=== PATIENT | female | born 1995 | race Caucasian/White ===

== ENCOUNTER 2023-03-19 14:14 | Emergency (ER) | payer OTHER, SELFPAY ==
--- NOTE | ~2023-03-19 | XR_ITS ---
EXAMINATION: XR abdomen/kub 1V DATE: 03/19/2023 15:10 INDICATION: Abdominal pain. Flank pain. TECHNIQUE: A supine view of the abdomen on 2 radiographs was obtained. COMPARISON: None. FINDINGS: There are no dilated loops of bowel. There is a moderate volume of stool in the colon. No v isible urolithiasis. IMPRESSION: 1. Normal bowel gas pattern. Reviewed, dictated and finalized at location E. CAR FOREMAN
[2023-03-19 14:37] VITALS: BP 140/95; PULSE 77; RESP 18; TEMP 37.1; O2SAT 100
--- NOTE | 2023-03-19 14:37 | ED.FEMALEGU ---
HPI - Female Genitourinary General Chief complaint: Urogenital-Female Stated complaint: abdominal pain,lower back pain Time Seen by Provider: 03/19/23 14:46 Source: patient and RN notes reviewed Mode of arrival: ambulatory Limitations: no limitations History of Present Illness HPI Narrative: 28-year-old female presents concern for 2 day history of right lower abdominal pain, right low back pain, suprapubic pressure, nausea. She reports history of ovarian cysts, however the pain is slightly different and more severe this time. She reports her last menstrual period ended about a week ago. She denies concern for . She reports her last bowel movement was yesterday. MD elicited complaint: flank pain Related Data Home Medications Medication Instructions Recorded Confirmed norethindrone 1 mg-ethinyl tablet 03/19/23 estradiol 20 mcg (24)-iron 75 mg (4) tablet (Aurovela 24 Fe) Allergies Allergy/AdvReac Type Severity Reaction Status Date / Time No Known Allergies Allergy Verified 03/19/23 14:40 Review of Systems Review of Systems: CONSTITUTIONAL: Denies malaise or fever. Reports chills, sweats CARDIOVASCULAR: Denies chest pain, palpitations, or edema. RESPIRATORY: Denies cough or dyspnea. GASTROINTESTINAL: Reports right lower abdominal pain. Denies nausea, vomiting, diarrhea GENITOURINARY: Denies dysuria, frequency, urgency. Reports suprapubic pressure. Repo denies rts flank pain or hematuria. SKIN: Denies rash or itching. MUSCULOSKELETAL: Reports right low back pain All systems reviewed & are unremarkable except as noted in HPI and below PMFSH Comments At time of signature, agree with nursing past medical, surgical, social and family history. There is no relevant family history pertinent to the presenting complaint Exam Narrative: GENERAL: Well-appearing, well-nourished, and in no acute distress. HEAD: Normocephalic. EYES: PERRLA, conjunctivae clear. NECK: Supple. No lymphadenopathy CHEST: Clear to auscultation. No respiratory distress. HEART: Regular rate and rhythm. ABDOMEN: Soft, nontender upon palpation, nondistended, normal active bowel sounds, no palpable or pulsatile masses, no guarding. No CVA tenderness SKIN: Warm, dry, no rash. NEURO: Alert and oriented x3. PSYCH: Normal mood and affect Course Course Emergency Course: Patient is aware of, understands and agrees to be transferred to the emergency room.. Patient agrees to proceed directly to the emergency department. Portions of this record may have been created with voice recognition software Level of Care: Express Care Visit Vital Signs Vital signs: Reviewed. Transfer Transfered to: [place] Transportation: Other (Private vehicle) Transfer rationale: Abdominal pain and flank pain Accepting physician: Jp MDM - Female Genitourinary MDM Narrative Medical decision making narrative: Exam findings and UA show no acute concerns or changes; patient is non-toxic appearing and is in no distress. Differential Diagnosis Differential diagnosis: Likely urinary tract infection, cystitis and other (Nephrolithiasis, ovarian cyst, other abdominal pathology) Imaging Data My impression: Images reviewed, interpreted by radiologist, agree, see report. Radiologist's impression: Images reviewed, interpreted by radiologist, agree, see report. Critical Care Time Critical Care Time Critical Care Time: No Discharge Plan Discharge Clinical Impression: Abdominal pain Patient Disposition: Acute Care Hospital Condition: Stable Additional Instructions: Your blood pressure was elevated above 120/80 today at [facility]. This puts you above the threshold for follow up. Please schedule a follow up visit with your personal physician as soon as possible, for further evaluation and treatment. Even blood pressure exceeding 120/80 may indicate pre-hypertension. Prescriptions: No Action Aurovela 24 Fe 1 mg-20 mcg
[2023-03-19 14:40] VITALS: BP 140/95; PULSE 77; RESP 18; TEMP 37.1; O2SAT 100
== END 2023-03-19 15:28 | disposition short-term general hospital (02) ==
PROVIDERS: Emergency Provider Nurse Practitioner; PCP Nurse Practitioner Family
DX: R10.30 Lower abdominal pain, unspecified (principal)
CPT/HCPCS: 74018; 81003; 99213; G0463

== ENCOUNTER 2023-03-19 16:14 | Emergency (ER) | payer OTHER, SELFPAY ==
[2023-03-19] VITALS (10 sets, daily range): BP systolic 109–171; BP diastolic 69–104; PULSE 64–86; RESP 12–18; TEMP 36.4–37; O2SAT 97–100
--- NOTE | ~2023-03-19 | CT_ITS ---
EXAMINATION: CT abdomen pelvis w con DATE: 03/19/2023 20:23 INDICATION: Right lower quadrant abdominal pain. TECHNIQUE: Computed tomography (CT) of the abdomen and pelvis was performed with 100 mL Omnipaque 350 intravenous contrast. Automated exposure control and iterative reconstruction technique were employe d. The dose-length product was 1125.09 mGy-cm. COMPARISON: Pelvis ultrasound 03/19/2023 FINDINGS: The visualized portions of the lung bases demonstrate mild atelectasis. No pleural effusion . The heart size is normal. No pericardial effusion. The liver, gallbladder, spleen, pancreas, adrena l glands, and kidneys are normal. There are no dilated loops of bowel. The appendix is normal. There are no pathologically enlarged lymph nodes. There is no free intraperitoneal fluid. There is mild tho racic spondylosis. IMPRESSION: 1. No etiology for the patient's symptoms. Reviewed, dictated and finalized at location E. ITY CONTROL DIRECTOR
--- NOTE | ~2023-03-19 | US_ITS ---
EXAMINATION: US pelvic complete w TV DATE: 03/19/2023 20:21 INDICATION: Right lower quadrant abdominal pain. TECHNIQUE: Multiple transabdominal and transvaginal sonographic images of the pelvis were obtained. COMPARISON: CT abdomen and pelvis 03/19/23 FINDINGS: TRANSABDOMINAL ULTRASOUND: The uterus measures 5.9 x 3.2 x 4.0 cm. There is no free fluid in the pelvis. TRANSVAGINAL ULTRASOUND: The endometrial complex measures 2 mm in thickness. The right ovary measures 2.6 x 1.7 x 2.7 cm. Ther e is normal vascular flow in the right ovary. The left ovary is not visualized, but is normal by CT. IMPRESSION: 1. Normal pelvis. Reviewed, dictated and finalized at location E. ER BLOCK CUTTER IMPRESSION: 1. Normal pelvis.
--- NOTE | 2023-03-19 19:40 | ED.GENADULT ---
HPI - General Adult General Chief complaint: Abdominal Pain Stated complaint: Abdominal pain Time Seen by Provider: 03/19/23 19:16 Source: patient Mode of arrival: ambulatory Limitations: no limitations History of Present Illness HPI narrative: This is a 28-year-old female who presents to the ED with chief complaint of right-sided abdominal pelvic pain x3 days. Reports initially it was very constant but has been more intermittent today. She was seen in urgent care referred her to the ED today. Reports that her normal menstrual period ended last Friday. Denies vaginal discharge or concern for STD. Denies fevers, chills or urinary problems. Denies problems with bowel movements. Related Data Home Medications Medication Instructions Recorded Confirmed norethindrone 1 mg-ethinyl tablet 03/19/23 estradiol 20 mcg (24)-iron 75 mg () tablet (Aurovela ) Allergies Allergy/AdvReac Type Severity Reaction Status Date / Time Sulfa (Sulfonamide Allergy Unknown Verified 03/19/23 21:23 Antibiotics) codeine AdvReac Unknown Verified 03/19/23 21:23 leflunomide [From Arava] AdvReac Unknown Verified 03/19/23 21:23 methotrexate AdvReac Unknown Verified 03/19/23 21:23 Review of Systems Review of Systems: All systems as dictated in HPI Exam Narrative: GENERAL: Well-appearing, well-nourished, and in no acute distress. HEAD: Normocephalic, atraumatic. EYES: PERRLA and EOMI. ENT: Nares clear, no rhinorrhea or epistaxis. Mucous membranes moist. Oropharynx without tonsillar hypertrophy exudate or other lesions. NECK: Supple. No adenopathy or masses. CHEST: No respiratory distress. Clear to auscultation. No wheezes rales or rhonchi HEART: Regular rate and rhythm. No murmur heard. Normal peripheral pulses. ABDOMEN: Mild tenderness in the right lower quadrant. Soft, otherwise nontender, nondistended, normal active bowel sounds. Negative flank tenderness bilaterally. MSK: Normal range of motion. No edema. SKIN: Warm, dry, no rash. NEURO: Alert and oriented x3. No focal deficits. PSYCH: Normal mood and affect. Course Vital Signs Vital signs: Vital Signs Temperature 97.6 F 03/19/23 16:17 Pulse Rate 82 03/19/23 16:17 Respiratory Rate 16 03/19/23 16:17 Blood Pressure 132/104 H 03/19/23 16:17 Pulse Oximetry 100 03/19/23 16:17 Oxygen Delivery Room Air 03/19/23 16:17 Temperature 98.6 F 03/19/23 19:03 Pulse Rate 64 03/19/23 21:51 Respiratory Rate 15 03/19/23 21:51 Blood Pressure 124/85 03/19/23 21:51 Pulse Oximetry 100 03/19/23 21:51 Oxygen Delivery Room Air 03/19/23 16:17 Medical Decision Making MDM Narrative Medical decision making narrative: This is a 28-year-old female who presents to the ED with chief complaint of right lower quadrant abdominal pain beginning 2 days ago. Vitals are normal. Afebrile. Exam shows focal tenderness to the right lower quadrant. Lab work shows a normal CBC. CMP largely unremarkable, however creatinine is unexpectedly little elevated at 1.50. Urinalysis shows 2+ protein and 2+ blood. No evidence of UTI. CT abdomen pelvis with IV contrast shows no etiology for patient's symptoms. Ultrasound pelvic shows a normal pelvis. Overall patient clinically improved greatly 0 only did not require any pain medication for intervention. Pt will be discharged in stable condition. Return precautions given and supportive measures discussed. Pt is understanding and agreeable with plan for discharge and follow-up with PCP. Vital Signs Vital Signs: Vital Signs Temperature 97.6 F 03/19/23 16:17 Pulse Rate 82 03/19/23 16:17 Respiratory Rate 16 03/19/23 16:17 Blood Pressure 132/104 H 03/19/23 16:17 Pulse Oximetry 100 03/19/23 16:17 Oxygen Delivery Room Air 03/19/23 16:17 Temperature 98.6 F 03/19/23 19:03 Pulse Rate 64 03/19/23 21:51 Respiratory Rate 15 03/19/23 21:51 Blood Pressure 124/85 03/19/23 21:
[2023-03-19 19:41] LABS: Basophils Percent Auto 0.5 % (0.2-1.2); Eosinophils Absolute Auto 0.1 K/mm3 (0-0.3); Eosinophils Percent Auto 0.9 % (0-4.4); Hematocrit 40.1 % (37.0-47.0); Hemoglobin 12.8 g/dL (12.0-15.0); Immature Granulocyte Absolute 0.07 K/mm3 (0.00-0.031); Immature Granulocyte Percent A 0.8 % (0-0.5); Lymphocytes Absolute Auto 1.67 K/mm3 (0.9-3.2); Lymphocytes Percent Auto 19.8 % (18.3-44.2); Mean Corpuscular HGB Conc 31.9 g/dl (32-36); Mean Corpuscular Hemoglobin 27.4 pg (26-34); Mean Corpuscular Volume 85.7 fl (80-100); Mean Platelet Volume 9.6 fl (7.4-10.4); Monocytes Absolute Auto 0.5 K/mm3 (0.1-0.6); Monocytes Percent Auto 5.9 % (2.6-8.5); Neutrophils Absolute Auto 6.1 K/mm3 (1.3-6.7); Neutrophils Percent Auto 72.1 % (45.5-73.1); Platelet Count Result 290 k/mm3 (150-375); Red Blood Count 4.68 M/mm3 (4.2-5.4); Red Cell Distribution Width 12.9 % (11.5-14.5); White Blood Count 8.4 K/mm3 (4.5-10.0)
[2023-03-19 19:52] LABS: Alanine Aminotransferase 38 U/L (6-35); Albumin Level 4.1 g/dL (3.5-5.1); Alkaline Phosphatase 107 U/L (38-126); Anion Gap 7 mmol/L (8-16); Aspartate Amino Transferase 38 U/L (14-36); Bilirubin,Total 0.8 mg/dL (0.2-1.3); Blood Urea Nitrogen 17 mg/dL (7-17); Carbon Dioxide 28 mmol/L (22-30); Chloride 103 mmol/L (98-107); Estimated Glomerular Filt Rate 42; Glucose 95 mg/dL (65-110); Lipase 32 U/L (23-300); Sodium 138 mmol/L (137-145)
[2023-03-19] MEDS: ONDANSETRON INJ 4 MG/2 ML VIAL IV PUSH (20:25)
[2023-03-19 20:57] LABS: Appearance Urine Clear (Clear); Bacteria Urine None Seen /hpf; Bilirubin Urine Negative (Negative); Blood Urine 2+ (Negative); Color Urine Yellow (Yellow); Glucose Urine UA Negative (Negative); Ketones Urine Negative (Negative); Leukocyte Esterase Ur Negative LEU/UL (Negative); Need Manual Microscopic Reviewed; Nitrate Urine Negative (Negative); Protein Urine 2+ mg/dL (Negative); RBC Urine 0-2 /hpf (0-2); Specific Grav Ur 1.022 (1.001-1.035); Squamous Epithelial Cell Urine Occasional /hpf (Few); Urobilinogen Urine 0.2 mg/dL (<2.0); WBC Urine 0-5 /hpf; pH Urine 5.5 (5.0-9.0)
[2023-03-19 20:58] LABS: Add Urine Microscopic? YES
== END 2023-03-19 21:52 | disposition home or self-care (01) ==
PROVIDERS: Emergency Provider Physician Assistant; PCP Nurse Practitioner Family
DX: R10.9 Unspecified abdominal pain (principal)
CPT/HCPCS: 36415; 74018; 74177; 76830; 76856; 80053; 81001; 81003; 83690; 85025; 96374; 99284; J2405; Q9967

== ENCOUNTER 2024-02-26 08:00 | Emergency (ER) | payer OTHER, SELFPAY ==
--- NOTE | 2024-02-26 08:10 | ED.URI ---
HPI - URI/Sore Throat General Chief Complaint: Upper Respiratory Infection Stated Complaint: cough Time Seen by Provider: 02/26/24 08:10 Source: patient, RN notes reviewed and old records reviewed Mode of arrival: ambulatory Limitations: no limitations History of Present Illness HPI Narrative: Patient presents with complaints of 4 days of cough and sore throat. She denies any fevers, chills, sweats. She reports sore throat is constant but is aggravated by coughing. She denies any postnasal drainage. She reports that she has had occasional wheezing, no shortness of breath. She has been taking Sudafed for her symptoms with minimal relief, last dose last night Related Data Home Medications ?Medication ?Instructions ?Recorded ?Confirmed ?Last Taken ?Type norethindrone 1 mg-ethinyl tablet 03/19/23 Unknown History estradiol 20 mcg (24)-iron 75 mg (4) tablet (Aurovela 24 Fe) Allergies Allergy/AdvReac Type Severity Reaction Status Date / Time No Known Allergies Allergy Verified 02/26/24 08:15 Review of Systems Review of Systems: All systems reviewed & are unremarkable except as noted in HPI and below Constitutional: Constitutional: Reports no additional constitutional complaints ENT: Reports system reviewed and no additional complaints, except as documented, Reports sore throat and Denies throat swelling Cardiovascular: Cardiovascular: Reports no additional cardiovascular complaints Respiratory: Respiratory: Reports no additional respiratory complaints, Reports cough and Reports wheezing Gastrointestinal: Gastrointestinal: Reports no additional gastrointestinal complaints PMFSH Comments At the time of my signature, I reviewed and agree with the nursing past medical, surgical, social, and family history. There is no relevant family history pertinent to the patient complaint. Exam Const: General: cooperative, no acute distress, alert and awake Orientation/consciousness: oriented to person, oriented to place and oriented to time HENMT: Head: normal to inspection Throat: abnormal tonsil bilateral hypertrophy 1+ and posterior oropharynx abnormal erythema Resp: Effort & Inspection: normal respiratory effort and able to speak in complete sentences Auscultation: clear to auscultation bilaterally, no crackles, no rales, no rhonchi and no wheezes Cardio: Palpation: normal PMI Rate: regular rate Rhythm: regular rhythm Heart sounds: S1 normal heart sound present and S2 normal heart sound present Neuro: General: oriented to person, oriented to place and oriented to time Cranial nerves: Yes CN's II-XII intact bilaterally Psych: Appearance: grossly normal Thought process: Normal thought process present Insight: Good insight present (Psych) Judgement: Good judgement present (Psych) Course Course Level of Care: Express Care Visit Vital Signs Vital signs: Reviewed MDM - URI/Sore Throat MDM Narrative Medical decision making narrative: negative strep, culture pending. Cough symptoms likely viral in origin. No wheezing or coughing noted on exam. Treat symptomatically with Tessalon Perles. Work note provided. Discharge instructions reviewed with patient, as well as provided in writing per nursing staff. The instructions also include specific and strict return/GO TO THE ER as well as f/u information. All questions have been answered, and the patient deny any further questions with discharge and discharge plan. Some parts of this dictation were generated by voice recognition software and may contain typographical and/or grammatical inaccuracies. Differential Diagnosis Differential diagnosis: Likely upper respiratory infection, viral infection, influenza and pharyngitis Medical Records Attestation: I reviewed the patient's medical records. Lab Data Attestation: I reviewed the patient's lab results. Discharge Plan Discharge Clinical Impression: Upper respiratory infection Qualifiers: URI type: unspecified viral URI Qualified Code(s): J06.9 - Acute upper respiratory infection, unspecified Patient Disposition: Home, Self-Care Condition: Stable Instructions: Antibiotic Form, Cold Symptoms (ED) Additional Instructions: Take medications as prescribed. Tylenol and/or ibuprofen for fever or discomfort. Follow with primary care provider. Emergency department for new or worse symptoms Patient Language: Persian Prescriptions: New benzonatate 200 mg capsule 200 mg PO TID PRN (Reason: cough) Qty: 30 0RF No Action Aurovela 24 Fe 1 mg-20 mcg (24)/75 mg (4) tablet Follow-up/Referrals: PHYSICIAN,CABLE STRETCHER AND TESTER [Primary Care Provider] - Stand Alone Forms: Work/School Release IP Time of Disposition: 08:26
[2024-02-26 08:11] VITALS: BP 122/85; PULSE 85; RESP 16; TEMP 35.8; O2SAT 100
[2024-02-26 08:30] LABS: EDSTREPNEGPOS1 Negative (Negative)
--- OUTSIDE RECORDS SUMMARY | 2024-03-04 06:25 | XMS_ITS | Encounter Summary ---
Author Organization [facility] Address [address] [place] [address] Care Team Providers Care Building Supervisor Name Role Phone Angie Melchor Primary Care Provider [phone] Reason for Visit * Reason Onset Date Comments MEDICATION REFILL 03/03/2023 Encounter Details Date Type Department Care Team (Late st Contact Info) Description 03/03/2023 Refill [facility] - RECYCLING COLLECTIONS DRIVER [address] [place] [address] Vani Blandon APRN-CNP [address] [place] [address] MEDICATION REFILL Social History Tobacco Use Types Packs/Day Years Used Date Smoking Tobacco: Never Smokeless Tobacco: Never Alcohol Use Standard Drinks/Week Comments Yes 0 (1 standard drink = 0.6 oz pur e alcohol) socially Sex and Gender Information Value Date Recorded Sex Assigned at Not on file Gender Identity Not on file Sexual Orientation Not on file documented as of this encounter Miscellaneous Notes * Telephone Encounter - Ginny Marcelo RN - 03/03/2023 12:45 PM MANAGER SOCIAL MEDIA OCP Refill request denied because Refills available at the pharmacy GER SOCIAL MEDIA documented in this encounter Plan of Treatment Not on file documented as of this encounter Visit Diagnoses Diagnosis Menorrhagia with regular cycle Excessive or frequent menstruation documented in this encounter Care Teams Building Supervisor Relationship Specialty Start Date End Date Angie Melchor APRN-JULISA [address] [place] [address] PCP - General Nurse Practitioner 07/04/22 documented as of this encounter
--- OUTSIDE RECORDS SUMMARY | 2024-03-04 06:25 | XMS_ITS | Encounter Summary ---
Author Organization [facility] Address [address] [place] [address] Care Team Providers Care Iron Bender Name Role Phone Angie Melchor Primary Care Provider [phone] Reason for Visit * Reason Comments Follow-up Patient wants to get back on control Encounter Details Date Type Department Care Team (Late st Contact Info) Description 07/23/2023 9:50 AM CDT Office Visit [facility] - SUPERVISOR ORNAMENTAL IRONWORKING [address] [place] [address] Vani Blandon APRN-CNP [address] [place] [address] Encounter for other contraceptive management (Primary Dx) Social History Tobacco Use Types Packs/Day Years Used Date Smoking Tobacco: Never Smokeless Tobacco: Never Alcohol Use Standard Drinks/Week Comments Yes 0 (1 standard drink = 0.6 oz pur e alcohol) socially PHQ-2 Answer Date Recorded Patient Health Questionnaire-2 Score 0 07/22/2023 Sex and Gender Information Value Date Recorded Sex Assigned at Not on file Gender Identity Not on file Sexual Orientation Not on file documented as of this encounter Last Filed Vital Signs Vital Sign Reading Time Taken Comments Blood Pressure 112/82 07/23/2023 9:51 AM CDT Pulse - - Temperature - - Respiratory Rate - - Oxygen Saturation - - Inhaled Oxygen Concentration - - Weight 104.6 kg (230 lb 9.6 oz) 07/23/2023 9:51 AM CDT Height 172.7 cm (5' 8 ) 07/23/2023 9:51 AM CDT Body Mass Index 35.06 07/23/2023 9:51 AM CDT documented in this encounter Progress Notes * Vani Blandon, PARAG-DEER FARMER - 07/23/2023 10:13 AM CDT Subjective: Aishwarya Alicea is a 28 year old female who presents contraception counseling. The patient has no complaints today. Pt stopped the pill in 04-19 due to BTB. Had bleeding in middle of pack. Pt had unprotected intercourse on 07-11-23 and took Plan B and had UPSI on 07-21-23 and has not taken Plan B yet. Advised to take again. Quant HCG today and to start new pill on Friday. Reminder to take pilldaily at the same time everyday. No plans for now. Pt to RTC in 3-4 months for annual exam and pap. No past medical history on file. Family History Problem Relation Name Age of Onset None Known Mother None Known Father Current Outpatient Medications Medication Sig Dispense Refill fluconazole (Diflucan) 150 MG tablet Take 1 (one) tablet by mouth as directed And can repeat in 1 week with 1 tab po for itch if needed 2 tablet 0 norethindone-ethinyl estradiol-FE (Loestrin 24 Fe) 1-20 MG-MCG(24) tablet Take 1 (one) tablet by mouth once daily 84 tablet 3 No current facility-administered medications for this visit. No Known Allergies Social History Socioeconomic History Marital status: Single Spouse name: Not on file Number of children: Not on file Years of education: Not on file Highest education level: Not on file Occupational History Not on file Tobacco Use Smoking status: Never Smokeless tobacco: Never Vaping Use Vaping Use: Some days Substance and Sexual Activity Alcohol use: Yes Comment: socially Drug use: Never Sexual activity: Yes Partners: Male Other Topics Concern Not on file Social History Narrative Not on file Social Determinants of Health Financial Resource Strain: Not on file Food Insecurity: Not on file Transportation Needs: Not on file Stress: Not on file Housing Stability: Not on file Review of Systems No other concerns Objective: BP 112/82 Ht 1.727 m (5' 8 ) Wt 104.6 kg (230 lb 9.6 oz) Assessment: 28 year old year old, starting OCP (estrogen/progesterone), new pill Plan: Diagnosis explained in detail, including differential. documented in this encounter Plan of Treatment Not on file documented as of this encounter Procedures Procedure Name Priority Date/Time Associated Diagnosis Comments HCG BETA BLOOD QUANTITATIVE LEWIS 07/23/2023 Encounter for other contraceptive management documented in this encounter Results * HCG BETA BLOOD QUANTITATIVE (07/23/2023) HCG Quant <5 mIU/mL QUEST Comment: Reference Range Non or premenopausal ?<5 Postmenopausal ? <10 Values from different assay methods may vary. The use of this assay to monitor or to diagnose patients with cancer or any condition unrelated to has not been cleared or approved by the FDA or the market analysis director of the assay. REPORT COMMENT: FASTING:NO Test Performed at: [facility] [address] ??[id number] KALYAN GOMEZ MD Blood BLOOD SPECIMEN / Unknown 07/23/2023 07/23/2023 10:25 AM CDT [facility] - CHEMISTRY OR DERABLES Performing Organization Address City/State/[facility] Co de Phone Number [facility] [address] [place] [address] documented in this encounter Visit Diagnoses Diagnosis Encounter for other contraceptive management- Primary documented in this encounter Care Teams Iron Bender Relationship Specialty Start Date End Date Angie Melchor APRN-CNP [address] [place] [address] PCP - General Nurse Practitioner 07/04/22 documented as of this encounter
--- OUTSIDE RECORDS SUMMARY | 2024-03-04 06:25 | XMS_ITS | Encounter Summary ---
Author Organization [facility] Address [address] [place] [address] Care Team Providers Care Boat Dock Operator Name Role Phone Angie Melchor Primary Care Provider [phone] Reason for Visit * Reason Onset Date Comments Med Question 12/19/2022 Encounter Details Date Type Department Care Team (Late st Contact Info) Description 12/19/2022 Telephone [facility] - PHOTO CHECKER [address] [facility] [place] [address] Vani Blandon APRN-CNP [address] [facility] [address] [place] [address] Med Question Social History Tobacco Use Types Packs/Day Years [...] Telephone Encounter - Ginny Marcelo RN - 12/19/2022 12:32 PM CDT RN called patient. Transferred prescription [facility]ills [facility]. * Telephone Encounter - Carolina Phelan - 12/19/2022 12:27 PM CDT Pt is wanting to speak with a nurse about having her prescription set [facility] with [facility]. documented in this encounter Plan of Treatment Not on file documented as of this encounter Visit Diagnoses Diagnosis Menorrhagia with regular cycle Excessive or frequent menstruation documented in this encounter Care Teams Boat Dock Operator Relationship Specialty Start Date End Date Angie Melchor APRN-JULISA [address] [place] [address] PCP - General Nurse Practitioner 07/04/22 documented as of this encounter
--- OUTSIDE RECORDS SUMMARY | 2024-03-04 06:25 | XMS_ITS | Encounter Summary ---
Author Organization [facility] Address [address] [facility] [facility] [place] [address] Care Team Providers Care Paid Search Specialist Name Role Phone Angie Melchor Primary Care Provider [phone] [phone] Reason for Visit * Reason Comments Refill Request Encounter Details Date Type Department Care Team (Late st Contact Info) Description 12/22/2023 Refill [facility] - PATTERNMAKER PLASTER [address] [facility] [address] [place] [address] Vani Blandon APRN-CNP [address] [place] [address] Refill Request Social History Tobacco Use Types Packs/Day Years [...] encounter Miscellaneous Notes * Telephone Encounter - Latasha Ordonez RN - 12/23/2023 12:04 PM CDT DELICIA 07/23/2023, given OCP #84 + 1 RF. RTO 3 to 4 months for WWE. No pending appointment and will refuse OCP today. documented in this encounter Plan of Treatment Not on file documented as of this encounter Visit Diagnoses Not on filedocumented in this encounter Care Teams Paid Search Specialist Relationship Specialty Start Date End Date Angie Melchor APRN-ACCOUNT EXECUTIVE SALES REPRESENTATIVE [address] [place] [address] PCP - General Nurse Practitioner 07/04/22 documented as of this encounter
--- OUTSIDE RECORDS SUMMARY | 2024-03-04 06:25 | XMS_ITS | Encounter Summary ---
Author Organization [facility] Address [address] [facility] [place] [address] Care Team Providers Care Facing End Trimmer Name Role Phone Angie Melchor Primary Care Provider +1 [phone] Encounter Details Date Type Department Care Team (Late st Contact Info) Description 09/18/2022 Orders Only [facility] - PROJECT MANAGER [address] [place] [address] Vani Blandon APRN-CNP [address] [place] [address] Candidiasis Social History Tobacco Use Types Packs/Day Years Used Date Smoking Tobacco: Never Smokeless Tobacco: Never Alcohol Use Standard Drinks/Week Comments Yes 0 (1 standard drink = 0.6 oz pur e alcohol) socially Sex and Gender Information Value Date Recorded Sex Assigned at Not on file Gender Identity Not on file Sexual Orientation Not on file documented as of this encounter Plan of Treatment Not on file documented as of this encounter Visit Diagnoses Diagnosis Candidiasis- Primary documented in this encounter Care Teams Facing End Trimmer Relationship Specialty Start Date End Date Angie Melchor APRN-CNP [address] [place] [address] PCP - General Nurse Practitioner 07/04/22 documented as of this encounter
--- OUTSIDE RECORDS SUMMARY | 2024-03-04 06:25 | XMS_ITS | Patient Health Summary ---
Author Organization [facility] Address [address] [facility] [place] [address] Care Team Providers Care Clinical Rn Liaison Name Role Phone Angie Melchor Primary Care Provider [phone] [phone] Note from [facility],non-owned Affiliates and Associated Physician Practices is amultiple site organization consisting of ambulatory clinics and hospital sitesin [place], [place], [place] and [place]. This disclosure is being madepursuant to the Care Everywhere program and may not contain all information available regarding this patient. Last updated 17.[facility] Allergies No known active allergies Medications * Be aware that medications may not be up to date on this document. Alwaysverify current medications with the patient. * fluconazole (Diflucan) 150 MG tablet(Started 09/18/2022) Take 1 (one) tablet by mouth as directed And can repeat in 1 week with 1 tab po for itch if needed * norgestim-eth estrad triphasic (Tri-Sprintec) 0.18/0.215/0.25 MG-35 MCG tablet (Started 07/23/2023) Take 1 (one) tablet by mouth once daily 1 refill by 07/22/2024 Active Problems Problem Noted Date Diagnosed Date Encounter for other contraceptive management Candidiasis 09/18/2022 Screening examination for sexually transmitted d isease 09/13/2022 Menorrhagia with regular cycle 09/13/2022 Dysmenorrhea 09/13/2022 Social History Tobacco Use Types Packs/Day Years Used Date Smoking Tobacco: Never Smokeless Tobacco: Never Tobacco Cessation:Counseling Given: No Alcohol Use Standard Drinks/Week Comments Yes 0 (1 standard drink = 0.6 oz pur e alcohol) socially PHQ-2 Answer Date Recorded Patient Health Questionnaire-2 Score 0 07/22/2023 Sex and Gender Information Value Date Recorded Sex Assigned at Not on file Gender Identity Not on file Sexual Orientation Not on file Last Filed Vital Signs Vital Sign Reading [...] Mass Index 35.06 07/23/2023 9:51 AM CDT Procedures * HCG BETA BLOOD QUANTITATIVE(Performed 07/23/2023) Performed for Encounter for other contraceptive management * SURESWAB VAGINOSIS/VAGINITIS PLUS(Performed 09/17/2022) Performed for Screening examination for sexually transmitted disease Results * HCG BETA BLOOD QUANTITATIVE (07/23/2023) Pathologist [facility] HCG Quant <5 mIU/mL [facility] Comment: Reference Range Non or premenopausal ?<5 Postmenopausal ? <10 Values from different assay methods may vary. The use of this assay to monitor or to diagnose patients with cancer or any condition unrelated to has not been cleared or approved by the FDA or the product owner of the assay. REPORT COMMENT: FASTING:NO Test Performed at: [facility] [facility] ??[id number] KALYAN GOMEZ MD Blood BLOOD SPECIMEN / Unknown 07/23/2023 07/23/2023 10:25 AM CDT Vani Blandon CORK MOLDER-EXECUTIVE [facility] - CHEMISTRY OR DERABLES [facility] [address] [place] [address] * (ABNORMAL) SURESWAB VAGINOSIS/VAGINITIS PLUS (09/17/2022 5:00 PM CDT) [facility] Bacterial Vaginosis NEGATIVE NEGATIVE [facility] Sangeetha species DETECTED(A) NOT DETECTED [facility] Sangeetha glabrata REBECCA NOT DETECTED NOT DETECTED [facility] Comment: Sangeetha species C. albicans, C. tropicalis, C. parapsilosis, and/or C. dubliniensis can be detected, but not differentiated, in the Sangeetha spp. result. Trichomonas vaginalis TMA NOT DETECTED NOT DETECTED [facility] Chlamydia trachomatis RNA NOT DETECTED NOT DETECTED [facility] GC RNA NOT DETECTED NOT DETECTED [facility] Comment: For additional information, please refer to https://education.VCV/faq/AUO842 (This link is being provided for information/ educational purposes only.) NO COLLECTION DATE RECEIVED. WE HAVE USED THE DATE THE SPECIMEN WAS RECEIVED BY THIS LABORATORY THE COLLECTION DATE. IF THIS IS INCORRECT, PLEASE CONTACT CLIENT SERVICES. PHONE NUMBER: [phone] Test Performed at: [facility] [address] [place] [address] ??[phone] KALYAN GOMEZ MD Microbiology VAGINAL SWAB / Unknown 09/17/2022 3:57 AM CDT Vani Blandon APRN-EXECUTIVE [facility] - MICROBIOLOGY ORDERABLES [facility] [address] [place] [address] Care Teams Clinical Rn Liaison Relationship Specialty Start Date End Date Angie Melchor APRN-CNP [address] [place] [address] PCP - General Nurse Practitioner 07/04/22
--- OUTSIDE RECORDS SUMMARY | 2024-03-04 06:25 | XMS_ITS | Encounter Summary ---
Author Organization [facility] Address [address] [place] [address] Care Team Providers Care Maintenance Man Name Role Phone Angie Melchor Primary Care Provider [phone] [phone] Reason for Visit * Reason Onset Date Comments Results 09/18/2022 Encounter Details Date Type Department Care Team (Late st Contact Info) Description 09/18/2022 Telephone [facility] - MANAGER OF EXHIBITIONS AND COLLECTIONS [address] [facility] [address] [place] [address] Vani Blandon APRN-CNP [address] [place] [address] Results Social History Tobacco Use Types Packs/Day Years [...] encounter Miscellaneous Notes * Telephone Encounter - Mariola Beltran RN - 09/18/2022 8:16 AM CDT RN called pt, no answer. Left VM to return call to go over results * Telephone Encounter - Mariola Beltran RN - 09/18/2022 8:13 AM CDT ----- Message from ELIN Carreon sent at 09/18/2022 8:06 AM CDT ----- Please let pt know her vaginal culture showed yeast. I will send Fluconazole for her Thanks Vani documented in this encounter Plan of Treatment Not on file documented as of this encounter Visit Diagnoses Not on filedocumented in this encounter Care Teams Maintenance Man Relationship Specialty Start Date End Date Angie Melchor APRN-CNP [address] [place] [address] PCP - General Nurse Practitioner 07/04/22 documented as of this encounter
--- OUTSIDE RECORDS SUMMARY | 2024-03-04 06:25 | XMS_ITS | Referral Summary ---
Author Organization [facility] Address [address] [facility] [place] [address] Care Team Providers Care Remote Operations Producer Name Role Phone Angie Melchor Primary Care Provider [phone] [phone] Source Comments [facility],non-owned Affiliates and Associated Physician Practices is amultiple site organization consisting of ambulatory clinics and hospital sitesin [place], [place], [place] and [place]. This disclosure is being madepursuant to the Care Everywhere program and may not contain all information available regarding this patient. Last updated 17.[facility] Encounters Date Type Department Care Team Description 12/22/2023 Refill [facility] - WINDOWS SYSTEMS ADMIN [address] [facility] [address] [place] [address] Vani Blandon APRN-CNP Refill Request from Last 3 Months Allergies No known active allergies Medications * Be aware that medications may not be up to date on this document. Alwaysverify current medications with the patient. Medication Sig Dispensed Refills Start Date End Date Status fluconazole (Diflucan) 150 MG tabletIndications:Ca ndidiasis Take 1 (one) tablet by mouth as directed And can repeat in 1 week with 1 tab po for itch if needed 2 tablet 09/18/2022 Active norgestim-eth estrad triphasic (Tri-Sprintec) 0.18/0.215/0.25 MG-35 MCG tablet Take 1 (one) tablet by mouth once daily 84 tablet 1 07/23/2023 Active Active Problems Problem Noted Date Diagnosed Date [...] Mass Index 35.06 07/23/2023 9:51 AM CDT Plan of Treatment Not on file Care Teams Remote Operations Producer Relationship Specialty Start Date End Date Angie Melchor APRN-JULISA [address] [place] [address] PCP - General Nurse Practitioner 07/04/22
--- OUTSIDE RECORDS SUMMARY | 2024-03-04 06:25 | XMS_ITS | Encounter Summary ---
Author Organization [facility] Address [address] [facility] [place] [address] Care Team Providers Care Test Automation Architect Name Role Phone Angie Melchor Primary Care Provider +1 [phone] Encounter Details Date Type Department Care Team (Latest Contact Info) Description 07/23/2023 Travel Social History Tobacco Use Types Packs/Day Years [...] on filedocumented in this encounter Care Teams Test Automation Architect Relationship Specialty Start Date End Date Angie Melchor APRN-CNP [address] [place] [address] PCP - General Nurse Practitioner 07/04/22 documented as of this encounter
--- OUTSIDE RECORDS SUMMARY | 2024-03-04 06:25 | XMS_ITS | Clinical Summary ---
Author Organization [facility] Address [address] [facility] [place] [address] Care Team Providers Care Boomboat Operator Name Role Phone Angie Melchor Primary Care Provider +1 -[phone] Source Comments [facility],non-owned Affiliates and Associated Physician Practices is amultiple site organization consisting of ambulatory clinics and hospital sitesin [place], [place], [place] and [place]. This disclosure is being madepursuant to the Care Everywhere program and may not contain all information available regarding this patient. Last updated 17.[facility] Outcome Referrals Allergies No known active allergies Medications * [...] Menorrhagia with regular cycle 09/13/2022 Dysmenorrhea 09/13/2022 Encounters Date Type Department Care Team Description 12/22/2023 Refill [facility] - TRANSCRIPTION TYPIST [address] [facility] [address] [place] [address] Vani Blandon APRN-JULISA Refill Request from Last 3 Months Family History Medical History Relation Name Comments None Known Father None Known Mother Relation Name Status Comments Father Mother Alive Social History Tobacco Use Types Packs/Day Years [...] 07/23/2023 9:51 AM CDT Plan of Treatment Health Maintenance Due Date Last Done Comments PAP SMEAR 1997 HIV SCREENING 01/22/2012 HEPATITIS C SCREENING 01/17/2015 DTAP/TDAP/TD VACCINES (1 - Tdap) 01/22/2016 HEPATITIS B VACCINE (1 of 3 - 19+ 3-dose series) 01/22/2016 COVID-19 VACCINE (3 - 2023-2 5 season) 2023 11/07/2020, 05/31/2020 INFLUENZA VACCINE (#1) 2023 2, 11/14/2020 DEPRESSION SCREENING 02/25/2024 07/23/2023 ZOSTER VACCINE (1 of 2) 2047 HIB VACCINE Aged Out No longer eligi ble based on patient's age to complete this topic HPV VACCINE Aged Out No longer eligi ble based on patient's age to complete this topic MENINGOCOCCAL VACCINE Aged Out No cyndie darren eligible based on patient's age to complete this topic PNEUMOCOCCAL VACCINE Aged Out No long er eligible based on patient's age to complete this topic Care Teams Boomboat Operator Relationship Specialty Start Date End Date Angie Melchor APRN-JULISA [address] [place] [address] PCP - General Nurse Practitioner 07/04/22
--- OUTSIDE RECORDS SUMMARY | 2024-03-04 06:26 | XMS_ITS | Encounter Summary ---
Author Organization [facility] Address [facility] [facility] [place] [address] [place] [address] Care Team Providers Care Acid Regenerator Name Role Phone Unavailable Primary Care Provider Unavailabl e Encounter Details Date Type Department Care Team (Latest Contact Info) Description 05/31/2020 Travel Social History Tobacco Use Types Packs/Day Years Used Date Smoking Tobacco: Never Assessed Comments Unknown Sex and Gender Information Value Date Recorded Sex Assigned at Not on file Legal Sex Female 7:47 PM CDT Gender Identity Not on file Sexual Orientation Not on file COVID-19 Exposure Response Date Recorded In the last month, have you been in contact with someone who was confirmed or suspected to have Coronavirus / COVID-19? No / Unsure 05/31/2020 11:32 AM CDT documented as of this encounter Plan of Treatment Not on file documented as of this encounter Visit Diagnoses Not on filedocumented in this encounter
--- OUTSIDE RECORDS SUMMARY | 2024-03-04 06:26 | XMS_ITS | Encounter Summary ---
Author Organization [facility] Address [facility] [facility] [place] [address] [place] [address] Care Team Providers Care Sas Programmer Analyst Name Role Phone Angie MelchorFANNY Primary Care Provider +1 [phone] Encounter Details Date Type Department Care Team (Latest Contact Info) Description 04/04/2022 Travel Social History Tobacco Use Types Packs/Day Years Used Date Smoking Tobacco: Never Smokeless Tobacco: Never Alcohol Use Standard Drinks/Week Comments Yes 0 (1 standard drink = 0.6 oz pur e alcohol) once weekly PHQ-2 Answer Date Recorded Patient Health Questionnaire-2 Score 1 04/02/2022 Comments No Sex and Gender Information Value Date Recorded Sex Assigned at Not on file Legal Sex Female 7:47 PM CDT Gender Identity Not on file Sexual Orientation Not on file COVID-19 Exposure Response Date Recorded In the last 10 days, have yo u been in contact with someone who was confirmed or suspected to have Coronavirus/COVID-19? No / Unsure 04/04/2022 9:08 AM INTERNATIONAL GUEST COORDINATOR documented as of this encounter Plan of Treatment Not on file documented as of this encounter Visit Diagnoses Not on filedocumented in this encounter Additional Health Concerns Assessment Noted Time PHQ-9 Depression Total Score: 7 04/02/19 23 3:46 PM INTERNATIONAL GUEST COORDINATOR documented as of this encounter Care Teams Sas Programmer Analyst Relationship Specialty Start Date End Date Angie Melchor FNP-BC [facility] [place] [address] PCP - General NURSE PRACTITIONER 03/21/22 10/25/23 documented as of this encounter
--- OUTSIDE RECORDS SUMMARY | 2024-03-04 06:26 | XMS_ITS | Encounter Summary ---
Author Organization [facility] Address [address] [place] [address]. [place] [address] [place] [address] Care Team Providers Care Customer Marketing Assistant Name Role Phone [facility] Primary Care Provider [phone]- [phone] Encounter Details Date Type Department Care Team (Late st Contact Info) Description 04/04/2022 tapviva Message Enc [facility] Family Medicine [facility] [address] [place] [phone] Angie Melchor FNP- [address] [place] [id number] Family History Social History Tobacco Use Types Packs/Day Years [...] Coronavirus/COVID-19? No / Unsure 04/04/2022 9:08 AM ENERGY CONSERVATION DIRECTOR documented as of this encounter Progress Notes * PREETHI Vee - 04/09/2022 11:51 AM CSTFrom: Aishwarya Alicea To: Angie Melchor Sent: 04/04/2022 8:03 AM ENERGY CONSERVATION DIRECTOR Subject: Family History Hi Shea! I just wanted to let you know I talked to my mom and she had endometriosis and adenomyosis and ended up having a hysterectomy and my maternal grandma had severe endometriosis and a hysterectomy. Thought that might be important as we are looking into PCOS for me. I was able to get in for the ultra sound and it is th is morning 04/04/22 at 9:15. Thank you! Aishwarya GY CONSERVATION DIRECTOR documented in this encounter Plan of Treatment Not on file documented as of this encounter Visit Diagnoses Diagnosis Hidradenitis suppurativa- Primary Hidradenitis documented in this encounter Additional Health Concerns Assessment Noted Time PHQ-9 Depression Total Score: 7 04/02/19 23 3:46 PM ENERGY CONSERVATION DIRECTOR documented as of this encounter Care Teams Customer Marketing Assistant Relationship Specialty Start Date End Date Angie Melchor FNP-BC [address] [place] [address] PCP - General NURSE PRACTITIONER 03/21/22 10/25/23 documented as of this encounter
--- OUTSIDE RECORDS SUMMARY | 2024-03-04 06:26 | XMS_ITS | Encounter Summary ---
Author Organization [facility] Address [facility] [facility] [place] [address] [place] [address] Care Team Providers Care Director Of Event Sales Name Role Phone Unavailable Primary Care Provider Unavailabl e Encounter Details Date Type Department Care Team (Late st Contact Info) Description 03/13/2022 Patient Self-Triage [facility] DEFAULT [facility] Provider Social History Tobacco Use Types Packs/Day Years [...]
--- OUTSIDE RECORDS SUMMARY | 2024-03-04 06:26 | XMS_ITS | Encounter Summary ---
Author Organization [facility] Address [address] [place] [address] Care Team Providers Care Ice Cream Chef Name Role Phone Angie Melchor Primary Care Provider [phone] [phone] Reason for Visit * Reason Comments Establish Care IRREGULAR PERIOD Patient has had 2 pe riods a month Heavy Menses Since childhood, pat ient has had heavy periods Encounter Details Date Type Department Care Team (Late st Contact Info) Description 09/13/2022 11:00 AM CDT Office Visit [facility] - ENGRAVER COPPERPLATE [address] [place] [address] Vani Blandon APRN-CNP [address] [place] [address] Menorrhagia with regular cycle (Primary Dx); Screening examination for sexually transmitted disease; Dysmenorrhea Social History Tobacco Use Types Packs/Day Years [...] Sign Reading Time Taken Comments Blood Pressure 115/81 09/13/2022 10:33 AM CDT Pulse - - Temperature - - Respiratory Rate - - Oxygen Saturation - - Inhaled Oxygen Concentration - - Weight 102.1 kg (225 lb) 09/13/2022 10:33 AM CDT Height 172.7 cm (5' 8 ) 09/13/2022 10:33 AM CDT Body Mass Index 34.21 09/13/2022 10:33 AM CDT documented in this encounter Patient Instructions * Patient Instructions* Vani Blandon APRN-CNP - 09/13/2022 11:37 AM CDT Pt to start control pills with next period and to take daily at the same time everyday Condoms as back up the first month and for STI protection Written instructions provided RTC in 3months if any concerns, otherwise in y for checkup If severe headache, chest pain or leg pain to call documented in this encounter Progress Notes * Vani Blandon APRN-CNP - 09/18/2022 8:06 AM CDT Please let pt know her vaginal culture showed yeast. I will send Fluconazole for her Thanks Vani * Vani Blandon APRN-CNP - 09/13/2022 10:51 AM CDT Subjective: Aishwarya Alicea is an 27 year old , Patient's last menstrual period was 08/22/2022 (exact date)., female who has period normally once a month and last 4-6 days but heavy. In Dec-Mar had 2 periods a month. There were 10 days between periods at that time. Pt changing tampons first day or2 q 1-2 hrs. Worsening dysmenorrhea. Pt does have cramping prior to and after period. Pt tried BCP's in HS and caused her to have extreme mood swings. Pt not using BC when sexually active but does not want . Pt has agreed to start on OCP's to see if helpful. Pt had labs drawn in 04-18 and were normal and she had a pelvic ultrasound that she said was normal. She will get a copy and have sent here. No past medical history on file. Family History Problem Relation Name Age of Onset ??? None Known Mother ??? None Known Father No current outpatient medications on file. No current facility-administered medications for this visit. No Known Allergies Social History Socioeconomic History ??? Marital status: Single Spouse name: Not on file ??? Number of children: Not on file ??? Years of education: Not on file ??? Highest education level: Not on file Occupational History ??? Not on file Tobacco Use ??? Smoking status: Never ??? Smokeless tobacco: Never Vaping Use ??? Vaping Use: Some days Substance and Sexual Activity ??? Alcohol use: Yes Comment: socially ??? Drug use: Never ??? Sexual activity: Yes Partners: Male Other Topics Concern ??? Not on file Social History Narrative ??? Not on file Social Determinants of Health Financial Resource Strain: Not on file Food Insecurity: Not on file Transportation Needs: Not on file Stress: Not on file Housing Stability: Not on file Review of Systems No other concerns Objective: BP 115/81 Ht 1.727 m (5' 8 ) Wt 102.1 kg (225 lb) General Appearance: alert, cooperative, no distress Lungs: breath sounds normal and symmetric; no rales or wheezes Heart: regular rhythm, normal S1 and S2, without murmurs Abdomen: soft without mass, non-tender Pelvic: Vulva and vagina appear normal. Cervix no lesions and vaginal culture taken Assessment: Menorrhagia, dysmenorrhea And STI screen Plan: Vaginal STI screen To start OCP's with next period See Orders. documented in this encounter Plan of Treatment Not on file documented as of this encounter Procedures Procedure Name Priority Date/Time Associated Diagnosis Comments [facility] VAGINOSIS/VAGINITIS PLUS Routine 09/17/2022 5:00 PM CDT Screening examination for sexually transmitted disease documented in this encounter Results * (ABNORMAL) [facility] VAGINOSIS/VAGINITIS PLUS (09/17/2022 5:00 PM CDT) Sureab Bacterial Vaginosis NEGATIVE NEGATIVE [facility] Sangeetha species [...] Comment: For additional information, please refer to https://education.[employer].svh24.de/faq/DVN296 (This link is being provided for information/ educational purposes only.) NO COLLECTION DATE RECEIVED. WE HAVE USED THE DATE THE SPECIMEN WAS RECEIVED BY THIS LABORATORY THE COLLECTION DATE. IF THIS IS INCORRECT, PLEASE CONTACT CLIENT SERVICES. PHONE NUMBER: [phone] Test Performed at: [facility] [address] [place], [place] ??[address] KALYAN GOMEZ MD Microbiology VAGINAL SWAB / Unknown 09/17/2022 3:57 AM CDT [facility] - MICROBIOLOGY ORDERABLES Performing Organization Address City/State/[facility] Co nv Phone Number [facility] [[email or web address]] [address] [place] [address] documented in this encounter Visit Diagnoses Diagnosis Menorrhagia with regular cycle- Primary Excessive or frequent menstruation Screening examination for sexually transmitted disease Screening examination for venereal disease Dysmenorrhea documented in this encounter Care Teams Ice Cream Chef Relationship Specialty Start Date End Date Angie Melchor APRN-CNP [facility] [place] [address] PCP - General Nurse Practitioner 07/04/22 documented as of this encounter
--- OUTSIDE RECORDS SUMMARY | 2024-03-04 06:26 | XMS_ITS | Encounter Summary ---
Author Organization [facility] Address [facility] [place] [address] [place] [address] Care Team Providers Care Executive Candidate Developer Name Role Phone Angie Melchor [facility] Primary Care Provider [phone] Encounter Details Date Type Department Care Team (Latest Contact Info) Description 04/03/2022 Hospital Encounter [facility] [address] [place] [address] [place]ie [place] [id number] [place] [address] Discharge Disposition: Home or Self Care (Routine Discharge) Social History Tobacco Use Types Packs/Day Years [...] suspected to have Coronavirus/COVID-19? No / Unsure 04/02/2022 3:00 PM FILER FINISH documented as of this encounter Plan of Treatment Not on file documented as of this encounter Visit Diagnoses Not on filedocumented in this encounter Additional Health Concerns Assessment Noted Time PHQ-9 Depression Total Score: 7 04/02/19 23 3:46 PM FILER FINISH documented as of this encounter Care Teams Executive Candidate Developer Relationship Specialty Start Date End Date [facility] [address] [place] [address] PCP - General NURSE PRACTITIONER 03/21/22 10/25/23 documented as of this encounter
--- OUTSIDE RECORDS SUMMARY | 2024-03-04 06:26 | XMS_ITS | Encounter Summary ---
Author Organization [facility] Address [facility] [place] [address] [place] [address] Care Team Providers Care Director Graphics Name Role Phone Unavailable Primary Care Provider Unavailabl e Encounter Details Date Type Department Care Team (Late st Contact Info) Description 05/31/2020 1:20 PM CDT Flu/Imm Clinic [facility] Medical Group Family Medicine [facility] [address], [address] [place] [id number] Social History Tobacco Use Types Packs/Day Years [...] as of this encounter Visit Diagnoses Diagnosis Need for prophylactic vaccination against viral disease- Primary Need for prophylactic vaccination and inoculation against other viral diseases documented in this encounter
--- OUTSIDE RECORDS SUMMARY | 2024-03-04 06:26 | XMS_ITS | Encounter Summary ---
Author Organization [facility] Address [address] [place] [address] [place] [address] Care Team Providers Care Department Clerk Name Role Phone Angie Melchor Primary Care Provider [phone] [phone] Reason for Referral * Consultation (Routine) - Closed Specialty Diagnoses / Procedures Referred By Parish hernandez Referred To Contact OBGYN Diagnoses Menorrhagia with irregular cycle Procedures OFFICE/OUTPT VISIT,NEW,LEVL III OFFICE/OUTPT VISIT,NEW,LEVL IV OFFICE/OUTPT VISIT,NEW,LEVL V OFFICE/OUTPT VISIT,EST,LEVL III OFFICE/OUTPT VISIT,EST,LEVL IV OFFICE/OUTPT VISIT,EST,LEVL V Angie Melchor FNP-BC [address] [place] [phone] Phone: tel: fax: [facility] [address] [place] [address] Phone: tel: fax: Referral ID Status Reason Start Date Expiration Date V isits Requested Visits Authorized [id number] Closed Specialty Services 06/28/2022 06/28/2023 100 100 * Consultation/Treatment (Routine) - Closed Specialty Diagnoses / Procedures Referred By Parish hernandez Referred To Contact DERMATOLOGY Diagnoses Hidradenitis suppurativa Procedures OFFICE/OUTPT VISIT,NEW,LEVL III OFFICE/OUTPT VISIT,NEW,LEVL IV OFFICE/OUTPT VISIT,NEW,LEVL V OFFICE/OUTPT VISIT,EST,LEVL III OFFICE/OUTPT VISIT,EST,LEVL IV OFFICE/OUTPT VISIT,EST,LEVL V Angie Melchor FNP-BC [facility] [place] [address] Phone: tel: fax: [facility] [address] [place] [address] Phone: tel: fax: Referral ID Status Reason Start Date Expiration Date V isits Requested Visits Authorized [id number] Closed Specialty Services 06/28/2022 06/28/2023 100 100 Encounter Details Date Type Department Care Team (Late st Contact Info) Description 06/27/2022 NaturVentiont Message Enc [facility] Medical Group Family Medicine [address] [address] Angie Melchor FNP-BC [address] [place] [phone] Gyno & Derm Social History Tobacco Use Types Packs/Day Years [...] on file documented as of this encounter Progress Notes * Linette Cedillo - 06/27/2022 1:52 PM CDT Pt called back she said she was referred to see a sorting machine attendant due to a previous US that she had done for experiencing irregular periods and pain. She said the US was inconclusive and they told her to see a specialist for further testing * Rhonda Adame MA - 06/27/2022 1:41 PM CDTFrom: Aishawrya Alicea To: Angie Melchor Sent: 06/27/2022 12:15 PM CDT Subject: Gyno & Derm Hi Shea! Hope you are well! I looked into Gynecologists and I believe I found one I would like to go to, at [facility] in [place]. I was also interested in seeing a Mold Yarn Supervisor mostly for the HS but also just to get checked. I was wanting to go to [facility]. Both places are accepting new patients as well. Can I please get a referral to those two? Is there anything else I need to do prior to scheduling an appointment? Thank you so much! Aishwarya documented in this encounter Plan of Treatment Scheduled Referrals Name Type Priority Associated Diagnoses Orde r Schedule Ambulatory referral to Dermatology Referral Routine Hidradenitis suppurativa Ordered: 06/28/2022 Ambulatory referral to Obstetrics/Gynecology (OTHER) Referral Routine Menorrhagia with irregular cycle Ordered: 06/28/2022 documented as of this encounter Visit Diagnoses Diagnosis Hidradenitis suppurativa- Primary Hidradenitis Menorrhagia with irregular cycle Excessive or frequent menstruation documented in this encounter Additional Health Concerns Assessment Noted Time PHQ-9 Depression Total Score: 7 04/02/19 23 3: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
--- OUTSIDE RECORDS SUMMARY | 2024-03-04 06:26 | XMS_ITS | Encounter Summary ---
Author Organization [facility] Address [facility] [place] [address] [place] [address] Care Team Providers Care Supervisor Correspondence Section Name Role Phone Unavailable Primary Care Provider Unavailabl e Encounter Details Date Type Department Care Team (Late st Contact Info) Description 1997 Abstract [place] [address] , Generic Conversion, Social History Tobacco Use Types Packs/Day Years [...]
--- OUTSIDE RECORDS SUMMARY | 2024-03-04 06:26 | XMS_ITS | Encounter Summary ---
Author Organization [facility] Address [address] [facility] [place] [address] Care Team Providers Care Food And Beverage Assistant Manager Name Role Phone Angie Melchor Primary Care Provider [phone] [phone] Encounter Details Date Type Department Care Team (Latest Contact Info) Description 07/30/2022 Travel Social History Tobacco Use Types Packs/Day Years Used Date Smoking Tobacco: Never Assessed Sex and Gender Information Value Date Recorded Sex Assigned at Not on file Gender Identity Not on file Sexual Orientation Not on file COVID-19 Exposure Response Date Recorded In the last 10 days, have yo u been in contact with someone who was confirmed or suspected to have Coronavirus/COVID-19? No / Unsure 07/30/2022 1:29 PM CDT documented as of this encounter Plan of Treatment Not on file documented as of this encounter Visit Diagnoses Not on filedocumented in this encounter Care Teams Food And Beverage Assistant Manager Relationship Specialty Start Date End Date Angie Melchor APRN-CNP [address] [place] [phone] PCP - General Nurse Practitioner 07/04/22 documented as of this encounter
--- OUTSIDE RECORDS SUMMARY | 2024-03-04 06:26 | XMS_ITS | Encounter Summary ---
Author Organization [facility] Address [facility] access hospital[address] [place] [address] [place] [address] Care Team Providers Care Brim Blocker Name Role Phone Angie MelchorFANNY Primary Care Provider [phone] Reason for Visit * Reason Comments Nausea Diarrhea Fatigue Encounter Details Date Type Department Care Team (Late st Contact Info) Description 10/08/2022 2:40 PM CDT Telemedicine [facility] Medical [facility] Medicine [address] [address] Angie Melchor FNP-BC [address] [place] [phone] Nausea; Diarrhea; Fatigue Social History Tobacco Use Types Packs/Day Years [...] on file documented as of this encounter Patient Instructions * Patient Instructions* PREETHI Vee - 10/08/2022 2:40 PM CDT 1. Viral gastroenteritis Keep diet bland and slowly advance; avoid foods that are spicy or greasy. Okay to take pepcid or tums to help w stomach acid. If diarrhea use imodium. If worsening symptoms let me know or go to ER. Suspect this is viral and is self limiting, should resolve in a couple of days 2. Nausea Use generic zofran every 8 hours as needed for nausea. - ondansetron (ZOFRAN) 4 MG tablet; Take 1 tablet (4 mg total) by mouth every 8 (eight) hours as needed for Nausea. Dispense: 20 tablet; Refill: 0 documented in this encounter Progress Notes * PREETHI Vee - 10/08/2022 2:40 PM CDTSummary: Tele viral illness Discussed the following with the patient: The patient has chosen to receive care through the use oftelemedicine. Telemedicine enables health care providers at different locations to provided safe, effective, and convenient care through the use of technology. As with any health care service, there are risks associated with the use of telemedicine, including equipment failure, poor image resolution , and information technology security analyst issues. Patient also understands that a physical exam may not be able evaritso performed and the patient may need to come to the clinic to complete the assessment. Aishwarya Alicea consented to the use of telemedicine. Aishwarya Alicea verbally understands the risks and benefits of telemedicine as explained. All questions regarding telemedicine answered. I introduced and identified myself, received verbal consent from the patient to proceed with this video visit and made the patient aware that the same confidentiality and information technology security analyst practices apply. The patient joined the video visit from the patient's Home. I completed the virtual visit from my Office. The following clinical staff helped with this visit MA: Rhonda Adame . Total Time Spent in Minutes: 20 Chief Complaint: 27-year-old female presents for Nausea, Diarrhea, and Fatigue History of present illness: Pt seen today virtually. Pt says on Friday started w right breast pressure was worse when she laid down and felt better whenshe sat up. No problems sleeping but felt exhausted on Friday, was tired, nausea and chest pressureseemed to have spread up into collar bone. Had diarrhea at least 6-7 times yesterday. Denies being black or tarry. Today GI symptoms have improved but chest pressure seems to have spread to left upper chest. Does not feel short of breath or coughing. She is not vaping. She has not checked temp but feels achy. She has not been sleeping to help w symptoms. After she eats she is very nauseated. She has eaten some toast, soup. Foods are bland and mild. Denies other people in home being sick nor hasshe eaten anything unusual to cause symptoms. ROS: Review of Systems Constitutional: Positive for chills and fatigue. Negative for fever. Gastrointestinal: Positive for abdominal pain, diarrhea and nausea. Neurological: Negative for dizziness and headaches. PHQ-9: 04/02/2022 3:46 PM PHQ2/PHQ 9 DEPRESSION SCREEN QUESTIONAIRE Little interest or pleasure in doing things Not at all Feeling down, depressed, or hopeless Several days Patient Health Questionnaire-2 Score 1 Trouble falling or staying asleep, or sleeping too much Over half Feeling tired or having little energy Over half Poor appetite or overeating Not at all Feeling bad about yourself - or that you are a failure or have let yourself or your family down Over half Trouble concentrating on things, such as reading the newspaper or watching television Not at all Moving or speaking so slowly that other people could have noticed? Or the opposite - being so fidgety or restless that you have been moving around a lot more than usual. Not at all Thoughts that you would be better off or hurting yourself in some way Not at all Patient Health Questionnaire-9 Score 7 How difficult have these problems made it for you to do your work, take care of things at home, or get along with other people? Somewhat difficult Medications: Current Outpatient Medications: 1-20 MG-MCG(24) tablet, Take 1 tablet by mouth daily., Disp: , Rfl: Allergies: No Known Allergies Medical History: Past Medical History: Diagnosis Date Allergic rhinitis Anxiety Depression Surgical History: Past Surgical History: Procedure Laterality Date NONE Social History: Social History Socioeconomic History Marital status: Single Tobacco Use Smoking status: Never Smokeless tobacco: Never Vaping Use Vaping Use: Every day Substances: Nicotine Devices: Disposable, Pre-filled pod Substance and Sexual Activity Alcohol use: Yes Comment: once weekly Drug use: Never Sexual activity: Not Currently Partners: Male control/protection: Condom, Other-see comments Social History Narrative Caffeine: 1 cup/day; [address] once a day Exercise: no routine 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 Physical exam by observation on video Physical Exam Nursing note reviewed. Constitutional: General: She is not in acute distress. Appearance: Normal appearance. She is not ill-appearing. Comments: Based on Video Assessment Pulmonary: Effort: Pulmonary effort is normal. No respiratory distress. Neurological: General: No focal deficit present. Mental Status: She is alert and oriented to person, place, and time. Psychiatric: Mood and Affect: Mood normal. Behavior: Behavior normal. Thought Content: Thought content normal. Judgment: Judgment normal. Labs: Diagnoses/Impression: No diagnosis found. Recommendations and Plan: There are no diagnoses linked to this encounter. Orders Placed This Encounter Medications 1-20 MG-MCG(24) tablet 1. Viral gastroenteritis Keep diet bland and slowly advance; avoid foods that are spicy or greasy. Okay to take pepcid or tums to help w stomach acid. If diarrhea use imodium. If worsening symptoms let me know or go to ER. Suspect this is viral and is self limiting, should resolve in a couple of days 2. Nausea Use generic zofran every 8 hours as needed for nausea. - ondansetron (ZOFRAN) 4 MG tablet; Take 1 tablet (4 mg total) by mouth every 8 (eight) hours as needed for Nausea. 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 [address] [place] [address] PCP - General NURSE PRACTITIONER 03/21/22 10/25/23 documented as of this encounter
--- OUTSIDE RECORDS SUMMARY | 2024-03-04 06:26 | XMS_ITS | Encounter Summary ---
Author Organization [facility] Address [address] [place] [address]. [place] [address] [place] [address] Care Team Providers Care Turnstile Collector Name Role Phone Angie Melchor Primary Care Provider [phone]- [phone] Encounter Details Date Type Department Care Team (Late st Contact Info) Description 04/03/2022 7:00 AM BUS PERSON DISHWASHER Laboratory Only [facility] Medical [facility] [address] [place] [address] Angie Melchor FNP-BC [address] [place] [address] Social History Tobacco Use Types Packs/Day Years [...] Coronavirus/COVID-19? No / Unsure 04/02/2022 3:00 PM BUS PERSON DISHWASHER documented as of this encounter Progress Notes * PREETHI Vee - 04/03/2022 7:00 AM CST Sent message via [employer]: Randa, Your labs do not indicate prediabetes/diabetes (normal hga1c); Iron count is low and would suggest taking daily iron supplement to increase this. Blood count does indicate minor anemia and should improve w iron. Glucose a few points elevated, electrolytes, kidney/liver function and lipids are normal. Testosterone, progesterone, thyroid levels normal. Please see comments on ultrasound. Shea PERSON DISHWASHER documented in this encounter Plan of Treatment Not on file documented as of this encounter Procedures Procedure Name Priority Date/Time Associated Diagnosis Comments COLLECTION VENOUS BLOOD VENIPUNCTURE Routine 04/03/2022 6:55 AM BUS PERSON DISHWASHER Menorrhagia with irregular cycle Routine general medical examination at a [facility] care facility TSH W/REFLEX Routine 04/03/2022 6:55 AM BUS PERSON DISHWASHER Routine general medical examination at a [facility] facility HEMOGLOBIN, GLYCOSYLATED Routine 04/03/2022 6:55 AM BUS PERSON DISHWASHER Routine general medical examination at a [facility] care facility IRON SAT PANEL (IRON,IBC,%SAT) Routine 04/03/2022 6:55 AM BUS PERSON DISHWASHER Menorrhagia with irregular cycle COMPREHENSIVE METABOLIC PANEL Routine 04/03/2022 6:55 AM BUS PERSON DISHWASHER Routine general medical examination at a [facility] facility LIPID PANEL Routine 04/03/2022 6:55 AM BUS PERSON DISHWASHER Routine general medical examination at a [facility] care facility CBC W/DIFF AUTOMATED Routine 04/03/2022 6:55 AM BUS PERSON DISHWASHER Routine general medical examination at a [facility] care facility TESTOSTERONE, TOTAL Routine 04/03/2022 6 :55 AM BUS PERSON DISHWASHER Menorrhagia with irregular cycle PROGESTERONE Routine 04/03/2022 6:55 AM BUS PERSON DISHWASHER Menorrhagia with irregular cycle documented in this encounter Results * (ABNORMAL) COMPREHENSIVE METABOLIC PANEL (04/03/2022 6:55 AM BUS PERSON DISHWASHER) Pathologist [facility] SODIUM S/P/B 138 136 - 145 MMOL/L 04/03/2022 3:18 PM [facility] POTASSIUM S/P/B 4.4 3.5 - 5.1 MMOL/L 04/03/2022 3:18 PM [facility] CHLORIDE S/P/B 102 98 - 107 MMOL/L 04/03/2022 3:18 PM [facility] CO2 28.0 21 - 32 MMOL/L 04/03/2022 3:18 PM [facility] GLUCOSE 105(H) 70 - 99 MG/DL 04/03/2022 3:18 PM [facility] BUN 11 7 - 18 MG/DL 04/03/2022 3:18 PM [facility] CREATININE S/P/B 0.76 0.55 - 1.02 MG/DL 04/03/2022 3:18 PM [facility] CALCIUM S/P/B 8.8 8.4 - 10.5 MG/DL 04/03/2022 3:18 PM [facility] BILIRUBIN TOTAL S/P/B 0.4 0.2 - 1.0 MG/DL 04/03/2022 3:18 PM [facility] ALKALINE PHOSPHATASE S/P/B 111(H) 37 - 98 U/L 04/03/2022 3:18 PM [facility] AST 25 15 - 37 U/L 04/03/2022 3:18 PM [facility] ALT 34 14 - 59 U/L 04/03/2022 3:18 PM [facility] TOTAL PROTEIN S/P/B 6.8 6.4 - 8.2 G/DL 04/03/2022 3:18 PM [facility] ALBUMIN S/P/B 3.7 3.4 - 5.0 G/DL 04/03/2022 3:18 PM [facility] ANION GAP 8.0 5 - 15 MMOL/L 04/03/2022 3:18 PM BUS PERSON DISHWASHER [facility] Comment:REFERENCE RANGE NOT ESTABLISHED OSMOLALITY (CALC) 286 MOSM/KG 023 3:18 PM BUS PERSON DISHWASHER [facility] Comment:REFERENCE RANGE NOT ESTABLISHED GFR ESTIMATE >90 >90 ML/MIN/1. 73 M2 04/03/2022 3:18 PM BUS PERSON DISHWASHER [facility] GFR NOTES GFR REFERENCE S: 04/03/2022 3:18 PM BUS PERSON DISHWASHER [facility] Comment: THE ESTIMATED GFR IS CALCULATED USING THE 2020 CKD-EPI EQUATION. THE FOLLOWING CATEGORIES FOR GRADING RENAL FUNCTION ARE RECOMMENDED BY THE INTERNATIONAL SOCIETY OF NEPHROLOGY (KDIGO 2012 CLINICAL PRACTICE GUIDELINE). G1,NORMAL OR HIGH: >89 ml/min/1.73 m2 G2,MILDLY DECREASED: 60-89 ml/min/1.73 m2 G3A,MILDLY TO MODERATELY DECREASED: 45-59 ml/min/1.73 m2 G3B,MODERATELY TO SEVERELY DECREASED: 30-44 ml/min/1.73 m2 G4,SEVERELY DECREASED: 15-29 ml/min/1.73 m2 G5,KIDNEY FAILURE: <15 ml/min/1.73 m2 04/03/2022 6:55 AM BUS PERSON DISHWASHER Angie Melchor [facility] Final Resul t [facility] [address] [place] [address], * (ABNORMAL) CBC W/DIFF AUTOMATED (04/03/2022 6:55 AM BUS PERSON DISHWASHER) WBC 5.98 4.00 - 10.80 x10'3/uL 04/03/2022 2:21 PM BUS PERSON DISHWASHER [facility] RBC 4.58 4.10 - 5.40 x10'6/uL 04/03/2022 2:21 PM BUS PERSON DISHWASHER [facility] HGB 11.9(L) 12.0 - 16.0 G/DL 04/03/2022 2:21 PM [facility] HCT 36.9 36.0 - 47.0 % 04/03/2022 2:21 PM [facility] MCV 80.6 78.0 - 100.0 FL 04/03/2022 2:21 PM [facility] MCH 26.0(L) 27.0 - 31.0 PG 04/03/2022 2:21 PM [facility] MCHC 32.2(L) 33.0 - 36.0 G/DL 04/03/2022 2:21 PM [facility] RDW 13.4 11.5 - 14.5 % 04/03/2022 2:21 PM [facility] PLT 328 150 - 350 x10'3/uL 04/03/2022 2:21 PM [facility] MPV 10.5(H) 7.4 - 10.4 FL 04/03/2022 2:21 PM [facility] DIFFERENTIAL TYPE AUTOMATED DIFFERENTIAL 04/03/2022 2:22 PM [facility] NEUTROPHILS % 68.5 % 04/03/2022 2:22 PM [facility] LYMPHOCYTES % 23.6 % 04/03/2022 2:22 PM [facility] MONOCYTES % 5.4 % 04/03/2022 2:22 PM [facility] EOSINOPHILS % 1.7 % 04/03/2022 2:22 PM [facility] BASOPHILS % 0.5 % 04/03/2022 2:22 PM [facility] IMMATURE GRANS % 0.3 % 04/03/2022 2:22 PM [facility] ABS. NEUTROPHILS 4.10 1.60 - 8.30 x10'3/uL 04/03/2022 2:22 PM [facility] ABS. LYMPHOCYTES 1.41 0.80 - 4.70 x10'3/uL 04/03/2022 2:22 PM BUS PERSON DISHWASHER [facility] ABS. MONOCYTES 0.32 0.00 - 1.50 x10'3/uL 04/03/2022 2:22 PM BUS PERSON DISHWASHER [facility] ABS. EOSINOPHILS 0.10 0.00 - 0.40 x10'3/uL 04/03/2022 2:22 PM BUS PERSON DISHWASHER [facility] ABS. BASOPHILS 0.03 0.00 - 0.20 x10'3/uL 04/03/2022 2:22 PM BUS PERSON DISHWASHER [facility] ABS. IMMATURE GRANULOCYTES 0.02 0.00 - 0.03 x10'3/uL 04/03/2022 2:22 PM BUS PERSON DISHWASHER [facility] 04/03/2022 6:55 AM BUS PERSON DISHWASHER Angie Melchor [facility] Final Resul t Performing Organization Address City/[facility]/ZIP Co de Phone Number [facility] [address] [place] [address], [place] [phone] * (ABNORMAL) HEMOGLOBIN, GLYCOSYLATED (04/03/2022 6:55 AM BUS PERSON DISHWASHER) HGB A1C 5.5 4.5 - 6.2 % 04/03/2022 10:22 PM BUS PERSON DISHWASHER [facility] ESTIMATED AVG GLUCOSE 111(H) 74 - 106 MG/DL 04/03/2022 10:22 PM BUS PERSON DISHWASHER [facility] 04/03/2022 6:55 AM BUS PERSON DISHWASHER Angie Melchor [facility] Final Resul t Performing Organization Address City/[facility]/ZIP Co de Phone Number [facility] [address] [place] [address], [place] [phone] * TSH W/REFLEX (04/03/2022 6:55 AM BUS PERSON DISHWASHER) TSH 1.566 0.358 - 3.740 uIU/ML 04/03/2022 3:18 PM BUS PERSON DISHWASHER [facility] 04/03/2022 6:55 AM BUS PERSON DISHWASHER Angie Melchor [facility] Final Resul t [facility] [address] [place] [address], * (ABNORMAL) LIPID PANEL (04/03/2022 6:55 AM BUS PERSON DISHWASHER) CHOLESTEROL 119 <200 MG/DL 04/03/2022 3:18 PM [facility] TRIGLYCERIDES 66 <150 MG/DL 04/03/2022 3:18 PM [facility] HDL 39(L) >40 MG/DL 04/03/2022 3:18 PM [facility] LDL-C 67 <100 MG/DL 04/03/2022 3:18 PM [facility] VLDL CALCULATION 13 5 - 28 MG/DL 04/03/2022 3:18 PM [facility] CHOL/HDL RATIO 3.1 0.0 - 4.0 04/03/2022 3:18 PM [facility] LDL/HDL 1.7 0.41 - 2.13 04/03/2022 3:18 PM [facility] NON HDL CHOLESTEROL 80 <140 MG/DL 04/03/2022 3:18 PM [facility] 04/03/2022 6:55 AM BUS PERSON DISHWASHER Angie Melchor [facility] Final Resul t [facility] [address] [place] [address], [place] [phone] * TESTOSTERONE, TOTAL (04/03/2022 6:55 AM BUS PERSON DISHWASHER) Testosterone: 29.0 14.0 - 827.0 NG/DL 04/03/2022 9:05 PM BUS PERSON DISHWASHER [facility] Comment: PRE-MENOPAUSE (21-60 YRS) 9.01-47.94 ng/dL POST-MENOPAUSE (45-87 YRS) <7.00-45.62 ng/dL ASSAY PERFORMED BY CHEMILUMINESCENCE METHODOLOGY USING SIEMENS [employer]AUR XPT REAGENT. PATIENT RESULTS DETERMINED BY ASSAYS USING DIFFERENT MANUFACTURERS FOR METHODS MAY NOT BE COMPARABLE. 04/03/2022 6:55 AM BUS PERSON DISHWASHER Angie Melchor [facility] Final Resul t Performing Organization Address [facility] de Phone Number [facility] [address] [place] [address], * PROGESTERONE (04/03/2022 6:55 AM BUS PERSON DISHWASHER) PROGESTERONE 4.9 NG/ML 04/03/2022 5:34 PM BUS PERSON DISHWASHER [facility] Comment: FOLLIC PHASE: 0.2 TO 1.7 ng/mL LUTEAL PHASE: 2.3 TO 24.2 ng/mL POST MENAPAUSAL: <0.2 TO 0.9 ng/mL 1ST TRIMESTER: 11.4 TO 41.0 ng/mL 2ND TRIMESTER: 13.9 TO 156.0 ng/mL 3RD TRIMESTER: 51.4 TO >200.0 ASSAY PERFORMED BY CHEMILUMINESCENCE METHODOLOGY USING SIEMENS [employer] REAGENT. PATIENT RESULTS DETERMINED BY ASSAYS USING DIFFERENT MANUFACTURERS FOR METHODS MAY NOT BE COMPARABLE. 04/03/2022 6:55 AM BUS PERSON DISHWASHER Angie Melchor [facility] Final Resul t Performing Organization Address [facility]/State/ZIP Co de Phone Number [facility] [address] [place] [address], [place] [phone] * (ABNORMAL) IRON SAT PANEL (IRON,IBC,%SAT) (04/03/2022 6:55 AM BUS PERSON DISHWASHER) IRON 32(L) 50 - 170 MCG/DL 04/03/2022 3:18 PM BUS PERSON DISHWASHER [facility] IRON BINDING CAPACITY 385 250 - 450 MCG/DL 04/03/2022 3:18 PM BUS PERSON DISHWASHER [facility] IRON SATURATION 8 % 3:18 PM BUS PERSON DISHWASHER [facility] Comment:REFERENCE RANGE NOT ESTABLISHED 04/03/2022 6:55 AM BUS PERSON DISHWASHER [facility]ie [facility]- LABORATORY Final Resul t [facility] [address] [place] [address], [place] [phone] documented in this encounter Visit Diagnoses Diagnosis Menorrhagia with irregular cycle Excessive or frequent menstruation Routine general medical examination at a health care facility documented in this encounter Additional Health Concerns Assessment Noted Time PHQ-9 Depression Total Score: 7 04/02/19 23 3:46 PM BUS PERSON DISHWASHER documented as of this encounter Care Teams Turnstile Collector Relationship Specialty Start Date End Date Angie Melchor FNP-BC [address] [place] [id number] PCP - General NURSE PRACTITIONER 03/21/22 10/25/23 documented as of this encounter
--- OUTSIDE RECORDS SUMMARY | 2024-03-04 06:26 | XMS_ITS | Encounter Summary ---
Author Organization [facility] Address [facility]ly [facility] [place] [address] [place] [address] Care Team Providers Care Environmental Monitoring Technician Name Role Phone Unavailable Primary Care Provider Unavailabl e Encounter Details Date Type Department Care Team (Late st Contact Info) Description 03/15/2022 Patient Self-Triage [facility] DEFAULT [facility] Provider Social History Tobacco Use Types [...]
--- OUTSIDE RECORDS SUMMARY | 2024-03-04 06:26 | XMS_ITS | Encounter Summary ---
Author Organization [facility] Address Critical access hospital6 [facility] [address] [place] [address] Care Team Providers Care Tire Tester Name Role Phone Angie Melchor [facility] Primary Care Provider [phone] Reason for Visit * Reason Comments CT (SCAN) Ultrasound (SCAN) Encounter Details Date Type Department Care Team ([facility] Contact Info) Description 03/19/2023 Scan HEALTH INFO [facility] Scanned, Doc Med Group CT (SCAN); Ultrasound (SCAN) Social History Tobacco Use Types Packs/Day Years [...] Procedure Name Priority Date/Time Associated Diagnosis Comments CT GENERIC 03/19/2023 ULTRASOUND GENERIC (SCAN ORDER) 03/19/2023 documented in this encounter Results * ULTRASOUND GENERIC (SCAN ORDER) (03/19/2023) Anatomical Region Laterality Modality Other 03/19/2023 us [facility] Scanned SCANNING Final Resu lt * CT GENERIC (03/19/2023) Anatomical Region Laterality Modality Other 03/19/2023 us [facility] Scanned SCANNING Final Resu lt documented in this encounter Visit Diagnoses Not on filedocumented in this encounter Additional Health Concerns Assessment Noted Time PHQ-9 Depression Total Score: 7 04/02/19 23 3:46 PM SECOND STEWARD documented as of this encounter Care Teams Tire Tester Relationship Specialty Start Date End Date Angie Melchor FNP- [address] [place] [address] PCP - General NURSE PRACTITIONER 03/21/22 10/25/23 documented as of this encounter
--- OUTSIDE RECORDS SUMMARY | 2024-03-04 06:26 | XMS_ITS | Encounter Summary ---
Author Organization [facility] Address [address] [place] [address]. [place], [place] [address] [place] [address] Care Team Providers Care Actimize Architect Name Role Phone Adams Azar Primary Care Provider [phone] [phone] Reason for Referral * Imaging (Urgent) - Closed Specialty Diagnoses / Procedures Referred By Parish hernandez Referred To Contact RADIOLOGY Diagnoses Pelvic pain Procedures US PELVIC NON OB COMP TV Adams Azar FNP-BC [address] [place] [address] Phone: tel: fax: Referral ID Status Reason Start Date Expiration Date Visits Re quested Visits Authorized [id number] Closed 04/02/2022 04/02/2023 1 1 H FINISHER Reason for Visit * Imaging (Urgent) - Closed Specialty Diagnoses / Procedures Referred By Parish hernandez Referred To Contact RADIOLOGY Diagnoses Pelvic pain Procedures US PELVIC NON OB COMP TV Adams Azar FNP-BC [address] [place] [address] Phone: tel: fax: Referral ID Status Reason Start Date Expiration Date Visits Re quested Visits Authorized [id number] Closed 04/02/2022 04/02/2023 1 1 Encounter Details Date Type Department Care Team (Latest Contact Info) Description 04/04/2022 9:12 AM PUNCH FINISHER - 04/04/2022 11:59 PM PUNCH FINISHER Hospital Encounter [facility] [address] [address] Adams Azar FNP-BC [facility] [place] [address] Discharge Disposition: Home or Self Care (Routine [...] Coronavirus/COVID-19? No / Unsure 04/04/2022 9:08 AM PUNCH FINISHER documented as of this encounter Medications at Time of Discharge doxycycline hyclate (VIBRAMYCIN) 100 MG capsuleIndication s:Hidradenitis suppurativa Take 1 capsule (100 mg total) by mouth 2 (two) times daily for 10 days. 20 capsule 04/09/2022 04/19/2022 documented as of this encounter Progress Notes * PREETHI Vee - 04/04/2022 9:15 AM CST Sent message via [employer]: Randa, Your ultrasound does show multiple ovarian follicles would could be causing your pain. I would likeyou to see [facility] for further evaluation as the labs completed were not totally suggestive of PCOS.Please let me know who you would like to see. Shea H FINISHER documented in this encounter Plan of Treatment Not on file documented as of this encounter Procedures Procedure Name Priority Date/Time Associated Diagnosis Comments US PELVIC NON OB COMP TV LEWIS 04/04/2022 10:41 AM PUNCH FINISHER Pelvic pain documented in this encounter Results * US PELVIC NON OB COMP TV (04/04/2022 10:41 AM PUNCH FINISHER) Anatomical Region Laterality Modality Pelvis Ultrasound 04/04/2022 10:5 2 AM PUNCH FINISHER Impressions 04/04/2022 10:57 AM PUNCH FINISHER IMPRESSION: No apparent uterine or ovarian mass. Mildly thickened endometrium but probably within normal limits for stated LMP. Ordered By: ADAMS AZAR Interpreted By: Maverick Taylor, 04/04/2022 10:52 AM Narrative 04/04/2022 10:57 AM PUNCH FINISHER IMAGING STUDIES: ??US PELVIC NON OB COMP TV ?DATE: ??04/04/2022 9:31 AM HISTORY: Pelvic and perineal pain 27-year-old G0 female with bilateral pelvic pain and irregular menstrual periods. Patient reports 2 menstrual periods per month for the last 3 months. LMP 03/07/2022. COMPARISON: None DISCUSSION: Endovaginal pelvic ultrasound. Anteverted uterus is 4.8 x 6.2 x 3.3 cm. Endometrium is 13.1 mm. No apparent uterine or endometrial mass. Right ovary 3.2 x 3.6 x 1.5 cm. Multiple right ovarian follicles, the largest is 9.4 mm. Left ovary 3.2 x 1.7 x 2.8 cm. Multiple left ovarian follicles, the largest 9.2 mm. Color Doppler and pulse Doppler imaging bilateral ovaries and adnexa within normal limits. No apparent free pelvic fluid. Procedure Note Maverick Taylor MD - 04/04/2022 IMAGING STUDIES: US PELVIC NON OB COMP TVDATE:04/04/2022 9:31 AM HISTORY: Pelvic and perineal pain 27-year-old G0 female with bilateralpelvic pain and irregular menstrual periods. Patient reports 2 menstrualperiods per month for the last 3 months. LMP 03/07/2022. COMPARISON: None DISCUSSION: Endovaginal pelvic ultrasound. Anteverted uterus is 4.8 x 6.2 x 3.3 cm. Endometrium is 13.1 mm. No apparent uterine or endometrial mass. Right ovary 3.2 x 3.6 x 1.5 cm. Multiple right ovarian follicles, thelargest is 9.4 mm. Left ovary 3.2 x 1.7 x 2.8 cm. Multiple left ovarian follicles, thelargest 9.2 mm. Color Doppler and pulse Doppler imaging bilateral ovaries and adnexawithin normal limits. No apparent free pelvic fluid. IMPRESSION: No apparent uterine or ovarian mass. Mildly thickened endometrium butprobably within normal limits for stated LMP. Ordered By: ADAMS AZAR Interpreted By: Maverick Taylor, 04/04/2022 10:52 AM Adams [facility] ULTRASOUND Final Resul t documented in this encounter Visit Diagnoses Diagnosis Pelvic pain documented in this encounter Additional Health Concerns Assessment Noted Time PHQ-9 Depression Total Score: 7 04/02/19 23 3:46 PM PUNCH FINISHER documented as of this encounter Care Teams Actimize Architect Relationship Specialty Start Date End Date Adams Azar FNP-BC [address] [place] [address] PCP - General NURSE PRACTITIONER 03/21/22 10/25/23 documented as of this encounter
--- OUTSIDE RECORDS SUMMARY | 2024-03-04 06:26 | XMS_ITS | Encounter Summary ---
Author Organization [facility] Address [facility] [place] [address] [place] [address] Care Team Providers Care Fire Battalion Chief Name Role Phone Adams Azar Primary Care Provider [phone] Reason for Referral * Imaging (Urgent) - Closed Specialty Diagnoses / Procedures Referred By Parish hernandez Referred To Contact RADIOLOGY Diagnoses Pelvic pain Procedures US PELVIC NON OB COMP TV Adams Azar FNP-BC [address] [place] [address] Phone: tel: fax: Referral ID Status Reason Start Date Expiration Date Visits Re quested Visits Authorized [id number] Closed 04/02/2022 04/02/2023 1 1 RACTIVE ACCOUNT MANAGER Reason for Visit * Reason Comments Physical Pt. C/o boils and ir regular periods with pain Encounter Details Date Type Department Care Team (Late st Contact Info) Description 04/02/2022 3:20 PM INTERACTIVE ACCOUNT MANAGER Office Visit [facility] Family Medicine [address] [address] Adams Azar FNP-BC [address] [place] [id number] Physical (Pt. C/o boils and irregular periods with pain) Social History Tobacco Use Types Packs/Day Years [...] Coronavirus/COVID-19? No / Unsure 04/02/2022 3:00 PM INTERACTIVE ACCOUNT MANAGER documented as of this encounter Last Filed Vital Signs Vital Sign Reading Time Taken Comments Blood Pressure 116/78 04/02/2022 3:12 PM INTERACTIVE ACCOUNT MANAGER Pulse 62 04/02/2022 3:12 PM INTERACTIVE ACCOUNT MANAGER Temperature 36.9 ??C (98.4 ??F) 04/02/2022 3:12 PM CS T Respiratory Rate 14 04/02/2022 3:12 PM INTERACTIVE ACCOUNT MANAGER Oxygen Saturation 100% 04/02/2022 3:12 PM INTERACTIVE ACCOUNT MANAGER Inhaled Oxygen Concentration - - Weight 106.1 kg (234 lb) 04/02/2022 3:12 PM INTERACTIVE ACCOUNT MANAGER Height 172.7 cm (5' 8 ) 04/02/2022 3:12 PM INTERACTIVE ACCOUNT MANAGER Body Mass Index 35.58 04/02/2022 3:12 PM INTERACTIVE ACCOUNT MANAGER documented in this encounter Patient Instructions * Patient Instructions* Adams Azar, [employer] - 04/02/2022 3:20 PM INTERACTIVE ACCOUNT MANAGER 1. Routine general medical examination at a health care facility Reviewed past medical, social, surgical and family history. Reviewed need for immunizations, current medications. Will check labs as appropriate. Yearly labs will include complete blood count, complete metabolic panel, lipids. Return to office as directed. This exam will be conducted annually. - COMPREHENSIVE METABOLIC PANEL; Future - CBC W/DIFF AUTOMATED; Future - HEMOGLOBIN, GLYCOSYLATED; Future - TSH W/REFLEX; Future - LIPID PANEL; Future 2. Menorrhagia with irregular cycle Will check labs and set up ultrasound. Suspect PCOS - TESTOSTERONE, TOTAL; Future - PROGESTERONE; Future - IRON SAT PANEL (IRON,IBC,%SAT); Future 3. BMI 35.0-35.9,adult Work on increasing exercise. Will check labs as we discussed 4. Pelvic pain Set up pelvic ultrasound - US PELVIC NON OB COMP TV; Future RACTIVE ACCOUNT MANAGER documented in this encounter Progress Notes * PREETHI Duran - 04/02/2022 3:20 PM CST Images from the original note were not included. [address] [place] [id number] Office Visit Encounter Date: 04/02/2022 Chief Complaint: 27-year-old female presents for Physical (Pt. C/o boils and irregular periods with pain) . History of Present Illness: Aishwarya Alicea is a 27-year-old female being seen today for new annual well visit. The last health maintenance exam was 10/2020 Mammogram: none, great aunt maternal Pap: 11/14/20 normal LMP: 03/07/2022, irregular Bone Density: at age 67 Colonoscopy: none, no fam hx of colon ca Hepatitis C Screen: none Immunizations: SEE IMMUNIZATION RECORD, Discussed importance of immunizations and recommended age appropriate immunizations if needed. Reviewed importance of Covid Vaccine CSA/UDA (if applicable): na Care team: UPDATED PHQ: 04/02/2022 History of Covid-19: no We also discussed the following today: Hx of boil and abnormal periods; started in December w 2 periods a month. 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 She has significant pain w periods. She made some dietary changes about 3 weeks ago. Hx of painful and heavy periods but never irregular. She took pg tests and all negative. She has not been sexually active for 2 years. She has not been on control for at least 5 years. Had had multiple abscesses over the years, has had a few groin, lower fold of abdomen, at times in axilla. She recently switched body washes to salysilic body wash. They will be painful and drain. Reviewed past medical, social, surgical and family history. ROS: Review of Systems Constitutional: Negative for activity change, appetite change, chills, diaphoresis and fatigue. HENT: Negative for congestion, dental problem, ear pain, facial swelling, hearing loss, mouth sores, postnasal drip, rhinorrhea, sinus pressure, sinus pain, sneezing, sore throat and trouble swallowing. Eyes: Negative for photophobia, discharge and visual disturbance. Respiratory: Negative for apnea, cough, choking, chest tightness, shortness of breath and stridor. Cardiovascular: Negative for chest pain, palpitations and leg swelling. Gastrointestinal: Negative for abdominal distention, abdominal pain, blood in stool, constipation, diarrhea, nausea and vomiting. Endocrine: Negative for cold intolerance and heat intolerance. Genitourinary: Positive for menstrual problem, pelvic pain and vaginal pain. Negative for difficulty urinating, dysuria, frequency and vaginal bleeding. Musculoskeletal: Negative for arthralgias, back pain, gait problem, joint swelling and neck pain. Skin: Negative for color change and pallor. recurrent abscesses Allergic/Immunologic: Negative for environmental allergies and food allergies. Neurological: Negative for dizziness, tremors, facial asymmetry, weakness, numbness and headaches. Hematological: Negative for adenopathy. Does not bruise/bleed easily. Psychiatric/Behavioral: Negative for confusion, hallucinations, sleep disturbance and suicidal ideas. The patient is not nervous/anxious and is not hyperactive. Immunizations: Immunization History Administered Date(s) Administered ??? Dtap (Acel-Immune) 1997, 1997, 1997, 12/12/1998, 12/31/2002 ??? HPV4 (Gardasil) 07/17/2011, 10/02/2012, 09/26/2014, 08/18/2015 ??? Hepatitis A (Havrix [address]) 07/21/2008, 08/17/2009 ??? Hepatitis B Pediatric 1997, 1997, 1997 ??? Hib (Omni-Hib) 05/11/1998 ??? Hib Vaccine, Hboc 1997, 1997, 1997 ??? Influenza Adult (Generic) 11/14/2020, 01/09/2022 ??? MMR (MMRII) 05/11/1998, 12/31/2002 ??? MODERNA COVID-19, MRNA, LNP-S, PF, 100 MCG/ 0.5 ML DOSE 05/31/2020, 11/07/2020 ??? Meningococcal (Menomune) 09/26/2014 ??? Polio IPV (Ipol) 1997, 1997, 12/12/1998, 12/31/2002 ??? Tdap (Generic) 07/21/2008 ??? Varicella (Varivax) 10/30/2006, 08/17/2009 PHQ/KE: PHQ-9: 04/02/2022 PHQ2/PHQ 9 DEPRESSION SCREEN QUESTIONAIRE Little interest [...] get along with other people? Somewhat difficult Multiple values from one day are sorted in reverse-chronological order Medications: No current outpatient medications on file. Allergies: No Known Allergies Medical History: Past Medical History: Diagnosis Date ??? Allergic rhinitis ??? Anxiety ??? Depression Surgical History: Past Surgical History: Procedure Laterality Date ??? NONE Social History: Social History Tobacco Use ??? Smoking status: Never ??? Smokeless tobacco: Never Substance Use Topics ??? Alcohol use: Yes Comment: once weekly Family History: Family History Problem Relation Name Age of Onset ??? Diabetes Mother Brianda Gestational ??? Mental Health Mother Brianda ??? No Known Problems Sister x2 ??? Depression Maternal Aunt Yasemin ??? Mental Health Maternal Aunt Yasemin ??? Cancer Maternal Grandmother Corina ??? Arthritis Maternal Grandfather Rosalino ??? Cancer Maternal Grandfather Rosalino ??? Diabetes Maternal Grandfather Rosalino Objective: Filed Vitals: 04/02/22 1512 BP: 116/78 Pulse: 62 Resp: 14 Temp: 98.4 ??F (36.9 ??C) TempSrc: Temporal SpO2: 100% Weight: 106.1 kg (234 lb) Height: 5' 8 (1.727 m) Body mass index is 35.58 kg/m??. Physical Exam Vitals and nursing note reviewed. Constitutional: Appearance: Normal appearance. She is obese. She is not ill-appearing. HENT: Right Ear: Tympanic membrane and ear canal normal. Left Ear: Tympanic membrane and ear canal normal. Nose: Nose normal. Mouth/Throat: Mouth: Mucous membranes are moist. Eyes: Extraocular Movements: Extraocular movements intact. Conjunctiva/sclera: Conjunctivae normal. Pupils: Pupils are equal, round, and reactive to light. Neck: Thyroid: No thyromegaly. Vascular: No carotid bruit. Cardiovascular: Rate and Rhythm: Normal rate and regular rhythm. Pulses: Normal pulses. Heart sounds: Normal heart sounds. No murmur heard. Pulmonary: Effort: Pulmonary effort is normal. No respiratory distress. Breath sounds: Normal breath sounds. Abdominal: General: Bowel sounds are normal. There is no distension. Palpations: Abdomen is soft. Tenderness: There is no abdominal tenderness. Musculoskeletal: General: Normal range of motion. Cervical back: Normal range of motion and neck supple. Right lower leg: No edema. Left lower leg: No edema. Lymphadenopathy: Cervical: No cervical adenopathy. Skin: General: Skin is warm and dry. Capillary Refill: Capillary refill takes less than 2 seconds. Findings: No bruising or rash. Neurological: General: No focal deficit present. Mental Status: She is alert and oriented to person, place, and time. Cranial Nerves: No cranial nerve deficit. Motor: No weakness. Gait: Gait normal. Psychiatric: Mood and Affect: Mood normal. Behavior: Behavior normal. Thought Content: Thought content normal. Judgment: Judgment normal. Diagnoses/Impression: 1. Routine general medical examination at a health care facility COMPREHENSIVE METABOLIC PANEL CBC W/DIFF AUTOMATED HEMOGLOBIN, GLYCOSYLATED TSH W/REFLEX LIPID PANEL 2. Menorrhagia with irregular cycle TESTOSTERONE, TOTAL PROGESTERONE IRON SAT PANEL (IRON,IBC,%SAT) 3. BMI 35.0-35.9,adult 4. Pelvic pain US PELVIC NON OB COMP TV Recommendations and Plan: Orders Placed This Encounter Medications ??? DISCONTD: escitalopram (LEXAPRO) 10 MG tablet ??? DISCONTD: escitalopram (LEXAPRO) 5 MG tablet 1. Routine general medical examination at a health care facility Reviewed past medical, social, surgical and family history. Reviewed need for immunizations, current medications. Will check labs as appropriate. Yearly labs will include complete blood count, complete metabolic panel, lipids. Return to office as directed. This exam will be conducted annually. - COMPREHENSIVE METABOLIC PANEL; Future - CBC W/DIFF AUTOMATED; Future - HEMOGLOBIN, GLYCOSYLATED; Future - TSH W/REFLEX; Future - LIPID PANEL; Future 2. Menorrhagia with irregular cycle Will check labs and set up ultrasound. Suspect PCOS - TESTOSTERONE, TOTAL; Future - PROGESTERONE; Future - IRON SAT PANEL (IRON,IBC,%SAT); Future 3. BMI 35.0-35.9,adult Work on increasing exercise. Will check labs as we discussed 4. Pelvic pain Set up pelvic ultrasound - US PELVIC NON OB COMP TV; Future Counseling: I spent 40 minutes today reviewing the patient's medical record, obtaining history, performing an exam, ordering medications, tests, and/or procedures, documenting in the medical record and counseling and educating the patient. PREETHI DURAN 04/02/2022 RACTIVE ACCOUNT MANAGER documented in this encounter Plan of Treatment Not on file documented as of this encounter Results * US PELVIC NON OB COMP TV (04/04/2022 10:41 AM INTERACTIVE ACCOUNT MANAGER) Anatomical Region Laterality Modality Pelvis Ultrasound 04/04/2022 10:5 2 AM INTERACTIVE ACCOUNT MANAGER Impressions 04/04/2022 10:57 AM INTERACTIVE ACCOUNT MANAGER IMPRESSION: No apparent uterine or ovarian mass. Mildly thickened endometrium but probably within normal limits for stated LMP. Ordered By: ADAMS AZAR Interpreted By: Maverick Taylor, 04/04/2022 10:52 AM Narrative 04/04/2022 10:57 AM INTERACTIVE ACCOUNT MANAGER IMAGING STUDIES: ??US PELVIC NON OB COMP [...] By: Maverick Taylor, 04/04/2022 10:52 AM Adams Azar [facility] Final Resul t * (ABNORMAL) IRON SAT PANEL (IRON,IBC,%SAT) (04/03/2022 6:55 AM INTERACTIVE ACCOUNT MANAGER) IRON 32(L) 50 - 170 MCG/DL 04/03/2022 3:18 PM INTERACTIVE ACCOUNT MANAGER [facility] IRON BINDING CAPACITY 385 250 - 450 MCG/DL 04/03/2022 3:18 PM INTERACTIVE ACCOUNT MANAGER [facility] IRON SATURATION 8 % 3:18 PM INTERACTIVE ACCOUNT MANAGER [facility] Comment:REFERENCE RANGE NOT ESTABLISHED 04/03/2022 6:55 AM INTERACTIVE ACCOUNT MANAGER Adams Azar [facility] Final Resul t [facility] [address] [place] [address], * PROGESTERONE (04/03/2022 6:55 AM INTERACTIVE ACCOUNT MANAGER) PROGESTERONE 4.9 NG/ML 04/03/2022 5:34 PM INTERACTIVE ACCOUNT MANAGER [facility] Comment: FOLLIC PHASE: 0.2 TO 1.7 ng/mL LUTEAL PHASE: 2.3 TO 24.2 ng/mL POST MENAPAUSAL: <0.2 TO 0.9 ng/mL 1ST TRIMESTER: 11.4 TO 41.0 ng/mL 2ND TRIMESTER: 13.9 TO 156.0 ng/mL 3RD TRIMESTER: 51.4 TO >200.0 ASSAY PERFORMED BY CHEMILUMINESCENCE METHODOLOGY USING [employer]. PATIENT RESULTS DETERMINED BY ASSAYS USING DIFFERENT MANUFACTURERS FOR METHODS MAY NOT BE COMPARABLE. 04/03/2022 6:55 AM INTERACTIVE ACCOUNT MANAGER Adams Azar [facility] Final Resul t Performing Organization Address City/[facility]/ZIP Co de Phone Number [facility] [address] [place] [address], [place] [phone] * TESTOSTERONE, TOTAL (04/03/2022 6:55 AM INTERACTIVE ACCOUNT MANAGER) Testosterone: 29.0 14.0 - 827.0 NG/DL 04/03/2022 9:05 PM INTERACTIVE ACCOUNT MANAGER [facility] Comment: PRE-MENOPAUSE (21-60 YRS) 9.01-47.94 ng/dL POST-MENOPAUSE (45-87 YRS) <7.00-45.62 ng/dL ASSAY PERFORMED BY CHEMILUMINESCENCE METHODOLOGY USING [employer] REAGENT. PATIENT RESULTS DETERMINED BY ASSAYS USING DIFFERENT MANUFACTURERS FOR METHODS MAY NOT BE COMPARABLE. 04/03/2022 6:55 AM INTERACTIVE ACCOUNT MANAGER Adams Azar [facility] Final Resul t Performing Organization Address City/[facility] Co de Phone Number [facility] [address] [place] [address], * (ABNORMAL) LIPID PANEL (04/03/2022 6:55 AM INTERACTIVE ACCOUNT MANAGER) CHOLESTEROL 119 <200 MG/DL 04/03/2022 3:18 PM INTERACTIVE ACCOUNT MANAGER [facility] TRIGLYCERIDES 66 <150 MG/DL 04/03/2022 3:18 PM INTERACTIVE ACCOUNT MANAGER [facility] HDL 39(L) >40 MG/DL 04/03/2022 3:18 PM INTERACTIVE ACCOUNT MANAGER [facility] LDL-C 67 <100 MG/DL 04/03/2022 3:18 PM INTERACTIVE ACCOUNT MANAGER [facility] VLDL CALCULATION 13 5 - 28 MG/DL 04/03/2022 3:18 PM INTERACTIVE ACCOUNT MANAGER [facility] CHOL/HDL RATIO 3.1 0.0 - 4.0 04/03/2022 3:18 PM INTERACTIVE ACCOUNT MANAGER [facility] LDL/HDL 1.7 0.41 - 2.13 04/03/2022 3:18 PM INTERACTIVE ACCOUNT MANAGER [facility] NON HDL CHOLESTEROL 80 <140 MG/DL 04/03/2022 3:18 PM INTERACTIVE ACCOUNT MANAGER [facility] 04/03/2022 6:55 AM INTERACTIVE ACCOUNT MANAGER Adams Azar [facility] Final Resul t Performing Organization Address City/[facility]/ZIP Co de Phone Number [facility] [address] [place] [address], [place] [phone] * TSH W/REFLEX (04/03/2022 6:55 AM INTERACTIVE ACCOUNT MANAGER) TSH 1.566 0.358 - 3.740 uIU/ML 04/03/2022 3:18 PM INTERACTIVE ACCOUNT MANAGER [facility] 04/03/2022 6:55 AM INTERACTIVE ACCOUNT MANAGER Adams Azar [facility] Final Resul t Performing Organization Address City/[facility]/ZIP Co de Phone Number [address] [address], [place] [phone] * (ABNORMAL) HEMOGLOBIN, GLYCOSYLATED (04/03/2022 6:55 AM INTERACTIVE ACCOUNT MANAGER) HGB A1C 5.5 4.5 - 6.2 % 04/03/2022 10:22 PM INTERACTIVE ACCOUNT MANAGER [facility] ESTIMATED AVG GLUCOSE 111(H) 74 - 106 MG/DL 04/03/2022 10:22 PM INTERACTIVE ACCOUNT MANAGER [facility] 04/03/2022 6:55 AM INTERACTIVE ACCOUNT MANAGER Adams Jill [facility] Final Resul t [facility] [address] [facility] [place] [address], [place] [phone] * (ABNORMAL) CBC W/DIFF AUTOMATED (04/03/2022 6:55 AM INTERACTIVE ACCOUNT MANAGER) Pathologist [facility] WBC 5.98 4.00 - 10.80 x10'3/uL 04/03/2022 2:21 PM INTERACTIVE ACCOUNT MANAGER [facility] RBC 4.58 4.10 - 5.40 x10'6/uL 04/03/2022 2:21 PM [facility] HGB 11.9(L) 12.0 - 16.0 G/DL 04/03/2022 2:21 PM [facility] HCT 36.9 36.0 - 47.0 % 04/03/2022 2:21 PM [facility] MCV 80.6 78.0 - 100.0 FL 04/03/2022 2:21 PM [facility] MCH 26.0(L) 27.0 - 31.0 PG 04/03/2022 2:21 PM [facility] MCHC 32.2(L) 33.0 - 36.0 G/DL 04/03/2022 2:21 PM [facility] RDW 13.4 11.5 - 14.5 % 04/03/2022 2:21 PM [facility] PLT 328 150 - 350 x10'3/uL 04/03/2022 2:21 PM [facility] MPV 10.5(H) 7.4 - 10.4 FL 04/03/2022 2:21 PM [facility] DIFFERENTIAL TYPE AUTOMATED DIFFERENTIAL 04/03/2022 2:22 PM INTERACTIVE ACCOUNT MANAGER [facility] NEUTROPHILS % 68.5 % 04/03/2022 2:22 PM [facility] LYMPHOCYTES % 23.6 % 04/03/2022 2:22 PM [facility] MONOCYTES % 5.4 % 04/03/2022 2:22 PM [facility] EOSINOPHILS % 1.7 % 04/03/2022 2:22 PM INTERACTIVE ACCOUNT MANAGER [facility] BASOPHILS % 0.5 % 04/03/2022 2:22 PM INTERACTIVE ACCOUNT MANAGER [facility] IMMATURE GRANS % 0.3 % 04/03/2022 2:22 PM INTERACTIVE ACCOUNT MANAGER [facility] ABS. NEUTROPHILS 4.10 1.60 - 8.30 x10'3/uL 04/03/2022 2:22 PM INTERACTIVE ACCOUNT MANAGER [facility] ABS. LYMPHOCYTES 1.41 0.80 - 4.70 x10'3/uL 04/03/2022 2:22 PM INTERACTIVE ACCOUNT MANAGER [facility] ABS. MONOCYTES 0.32 0.00 - 1.50 x10'3/uL 04/03/2022 2:22 PM INTERACTIVE ACCOUNT MANAGER [facility] ABS. EOSINOPHILS 0.10 0.00 - 0.40 x10'3/uL 04/03/2022 2:22 PM [facility] ABS. BASOPHILS 0.03 0.00 - 0.20 x10'3/uL 04/03/2022 2:22 PM INTERACTIVE ACCOUNT MANAGER [facility] ABS. IMMATURE GRANULOCYTES 0.02 0.00 - 0.03 x10'3/uL 04/03/2022 2:22 PM INTERACTIVE ACCOUNT MANAGER [facility] 04/03/2022 6:55 AM INTERACTIVE ACCOUNT MANAGER us Adams Azar [facility] Final Resul t [facility] [address] [place] [address], * (ABNORMAL) COMPREHENSIVE METABOLIC PANEL (04/03/2022 6:55 AM INTERACTIVE ACCOUNT MANAGER) [facility] SODIUM S/P/B 138 136 - 145 MMOL/L 04/03/2022 3:18 PM [facility] POTASSIUM S/P/B 4.4 3.5 - 5.1 MMOL/L 04/03/2022 3:18 PM [facility] CHLORIDE S/P/B 102 98 - 107 MMOL/L 04/03/2022 3:18 PM [facility] CO2 28.0 21 - 32 MMOL/L 04/03/2022 3:18 PM [facility] GLUCOSE 105(H) 70 - 99 MG/DL 04/03/2022 3:18 PM [facility] BUN 11 7 - 18 MG/DL 04/03/2022 3:18 PM [facility] CREATININE S/P/B 0.76 0.55 - 1.02 MG/DL 04/03/2022 3:18 PM [facility] CALCIUM S/P/B 8.8 8.4 - 10.5 MG/DL 04/03/2022 3:18 PM [facility] BILIRUBIN TOTAL S/P/B 0.4 0.2 - 1.0 MG/DL 04/03/2022 3:18 PM [facility] ALKALINE PHOSPHATASE S/P/B 111(H) 37 - 98 U/L 04/03/2022 3:18 PM [facility] AST 25 15 - 37 U/L 04/03/2022 3:18 PM [facility] ALT 34 14 - 59 U/L 04/03/2022 3:18 PM [facility] TOTAL PROTEIN S/P/B 6.8 6.4 - 8.2 G/DL 04/03/2022 3:18 PM [facility] ALBUMIN S/P/B 3.7 3.4 - 5.0 G/DL 04/03/2022 3:18 PM INTERACTIVE ACCOUNT MANAGER [facility] ANION GAP 8.0 5 - 15 MMOL/L 04/03/2022 3:18 PM INTERACTIVE ACCOUNT MANAGER [facility] Comment:REFERENCE RANGE NOT ESTABLISHED OSMOLALITY (CALC) 286 MOSM/KG 023 3:18 PM INTERACTIVE ACCOUNT MANAGER [facility] [place] Comment:REFERENCE RANGE NOT ESTABLISHED GFR ESTIMATE >90 >90 ML/MIN/1. 73 M2 04/03/2022 3:18 PM INTERACTIVE ACCOUNT MANAGER [facility]TER[facility] GFR NOTES GFR REFERENCE S: 04/03/2022 3:18 PM INTERACTIVE ACCOUNT MANAGER [facility] [place] Comment: THE ESTIMATED GFR IS CALCULATED USING [...] FAILURE: <15 ml/min/1.73 m2 04/03/2022 6:55 AM INTERACTIVE ACCOUNT MANAGER Adams Azar [facility] Final Resul t [facility] [address] [place] [address], [place] [phone] documented in this encounter Visit Diagnoses Diagnosis Routine general medical examination at a health care facility- Primary Menorrhagia with irregular cycle Excessive or frequent menstruation BMI 35.0-35.9,adult Body Mass Index 35.0-35.9, adult Pelvic pain Pelvic pain documented in this encounter Additional Health Concerns Assessment Noted Time PHQ-9 Depression Total Score: 7 04/02/19 23 3:46 PM INTERACTIVE ACCOUNT MANAGER documented as of this encounter Care Teams Fire Battalion Chief Relationship Specialty Start Date End Date Adams Azar, [facility] [address] [place] [address] PCP - General NURSE PRACTITIONER 03/21/22 10/25/23 documented as of this encounter
--- OUTSIDE RECORDS SUMMARY | 2024-03-04 06:26 | XMS_ITS | Encounter Summary ---
Author Organization [facility] Address [address] [facility] [address] [place] [address] Care Team Providers Care Licensed Staff Mft Name Role Phone Angie Melchor [facility] Primary Care Provider [phone] Encounter Details Date Type Department Care Team (Latest Contact Info) Description 04/03/2022 Hospital Encounter [facility] [address] [place] [address] Angie Melchor FNP-[facility] [place] [address] Discharge Disposition: Home or Self [...] Coronavirus/COVID-19? No / Unsure 04/02/2022 3:00 PM DIRECTOR EMBALMER documented as of this encounter Plan of Treatment Not on file documented as of this encounter Visit Diagnoses Not on filedocumented in this encounter Additional Health Concerns Assessment Noted Time PHQ-9 Depression Total Score: 7 04/02/19 3:46 PM DIRECTOR EMBALMER documented as of this encounter Care Teams Licensed Staff Mft Relationship Specialty Start Date End Date [facility] [address] [place] [address] PCP - General NURSE PRACTITIONER 03/21/22 10/25/23 documented as of this encounter
--- OUTSIDE RECORDS SUMMARY | 2024-03-04 06:26 | XMS_ITS | Encounter Summary ---
Author Organization [facility] Address Count includes the [facility] [facility] [place] [address] [place] [address] Care Team Providers Care Piece Goods Packer Name Role Phone Angie Melchor [facility] Primary Care Provider [phone]- [phone] Encounter Details Date Type Department Care Team (Latest Contact Info) Description 07/21/2023 Senexx Message Enc [facility] Medical Group Family Medicine [facility] [address] [place] [phone] Angie Melchor [facility] [address] [place] [address] Emergency Contraception Social History Tobacco Use Types Packs/Day Years [...] encounter Progress Notes * PREETHI Vee - 07/22/2023 7:15 AM CDTFrom: Aishwarya Alicea To: Angie Melchor Sent: 07/21/2023 4:47 PM CDT Subject: Emergency Contraception Good evening, I just wanted to know if there???s a prescription I can get for an emergency contraception pill or if buying a plan b from a pharmacy was my only option? Thank you! Aishwarya documented in this encounter Plan of Treatment Not on file documented as of this encounter Visit Diagnoses Not on filedocumented in this encounter Additional Health Concerns Assessment Noted Time PHQ-9 Depression Total Score: 7 04/02/19 23 3:46 PM ACCOUNTING ANALYST documented as of this encounter Care Teams Piece Goods Packer Relationship Specialty Start Date End Date Angie Melchor FNP-BC [facility] [place] [address] PCP - General NURSE PRACTITIONER 03/21/22 10/25/23 documented as of this encounter
--- OUTSIDE RECORDS SUMMARY | 2024-03-04 06:26 | XMS_ITS | Encounter Summary ---
Author Organization [facility] Address [address] [facility] [place] [address] Care Team Providers Care Elevator Dispatcher Name Role Phone Angie Melchor Primary Care Provider [phone] Encounter Details Date Type Department Care Team (Latest Contact Info) Description 09/13/2022 Travel Social History Tobacco Use Types Packs/Day [...] on filedocumented in this encounter Care Teams Elevator Dispatcher Relationship Specialty Start Date End Date Angie Melchor APRN-CNP [address] [place] [id number] PCP - General Nurse Practitioner 07/04/22 documented as of this encounter
--- OUTSIDE RECORDS SUMMARY | 2024-03-04 06:26 | XMS_ITS | Encounter Summary ---
Author Organization [facility] Address [address] [place] [address]. [place] [address] [place] [address] Care Team Providers Care Transit Mix Operator Name Role Phone Angie Melchor Primary Care Provider [phone] Encounter Details Date Type Department Care Team (Late st Contact Info) Description 04/22/2022 Patient Self-Triage [facility] FACILITY DEFAULT [facility] Provider Social History Tobacco Use [...] Coronavirus/COVID-19? No / Unsure 04/04/2022 9:08 AM CHEF DE FROID documented as of this encounter Plan of Treatment Not on file documented as of this encounter Visit Diagnoses Not on filedocumented in this encounter Additional Health Concerns Assessment Noted Time PHQ-9 Depression Total Score: 7 04/02/19 23 3:46 PM CHEF DE FROID documented as of this encounter Care Teams Transit Mix Operator Relationship Specialty Start Date End Date Angie Melchor FNP-BC [address] [place] [address] PCP - General NURSE PRACTITIONER 03/21/22 10/25/23 documented as of this encounter
--- OUTSIDE RECORDS SUMMARY | 2024-03-04 06:26 | XMS_ITS | Encounter Summary ---
Author Organization [facility] Address [address] [place] [address]. [place] [address] [place] [address] Care Team Providers Care Skeiner Name Role Phone Angie Melchor [facility] Primary Care Provider [phone]- [phone] Encounter Details Date Type Department Care Team (Late st Contact Info) Description 05/15/2022 YaBeam Message Enc [facility] Medical Group Family Medicine [address] [phone] Angie Melchor [address] [address] doxycycline Social History Tobacco Use Types Packs/Day Years [...] encounter Progress Notes * PREETHI Vee - 05/15/2022 1:57 PM CDTFrom: Aishwarya Alicea To: Angie Melchor Sent: 05/15/2022 12:35 PM CDT Subject: doxycycline [facility]- Wanted to see if you could fill a 10 day prescription for the doxycycline for me please? I have twoabscesses. Thank you, Aishwarya documented in this encounter Plan of Treatment Not on file documented as of this encounter Visit Diagnoses Diagnosis Hidradenitis suppurativa- Primary Hidradenitis documented in this encounter Additional Health Concerns Assessment Noted Time PHQ-9 Depression Total Score: 7 04/02/19 23 3:46 PM HAND RUG CLEANER documented as of this encounter Care Teams Skeiner Relationship Specialty Start Date End Date Angie Melchor FNP-BC [facility] [place] [address] PCP - General NURSE PRACTITIONER 03/21/22 10/25/23 documented as of this encounter
--- OUTSIDE RECORDS SUMMARY | 2024-03-04 06:26 | XMS_ITS | Clinical Summary ---
Author Organization [facility] Address [address] [facility] [place] [address] [place] [address] Care Team Providers Care Senior Center Director Name Role Phone Daisy Henson MD Primary Care Provider [phone] Allergies No known active allergies Medications 1-20 MG-MCG(24) tablet Take 1 tablet by mouth daily. Active ondansetron (ZOFRAN) 4 MG tabletIndication s:Nausea Take 1 tablet (4 mg total) by mouth every 8 (eight) hours as needed for Nausea. 20 tablet 10/08/2022 Active Active Problems Problem Noted Date Diagnosed Date Candidiasis 09/18/2022 Dysmenorrhea 09/13/2022 Menorrhagia with regular cycle 09/13/2022 Hidradenitis suppurativa 04/02/2022 Migraine with aura and witho ut status migrainosus, not intractable 06/06/2020 Mild major depression 06/06/2020 KE (generalized anxiety disorder) 12/17/2017 Resolved Problems Problem Noted Date Diagnosed Date Resolved Date Screening examination for se xually transmitted disease 09/13/2022 10/14/2022 Severe episode of recurrent major depressive disorder, without psychotic features ([facility]) 12/17/2017 04/02/2022 Immunizations Name Administration Dates Next Due Dtap (Acel-Immune) 12/31/2002, 9,1997,05/26,1997 HPV4 (Gardasil) 08/18/2015, 5,10/02/2012,07/16 Hepatitis A (Havrix [address]) 08/17/2009, 009 Hepatitis B Pediatric 1997,1997,12/26 Hib (Omni-Hib) 05/11/1998 Hib Vaccine, Hboc 1997,1997,03/28/18 98 Influenza Adult (Generic) 01/09/2022,11/14/2020 MMR (MMRII) 12/31/2002,05/11/1998 MODERNA COVID-19 (12+) MRNA, LNP-S, PF, 100 MCG/ 0.5 ML DOSE 05/31/2020 Meningococcal (Menomune) 09/26/2014 Polio IPV (Ipol) 12/31/2002, 9,1997,03/28 Tdap (Generic) 01/09/2022,07/21/2008 Varicella (Varivax) 08/17/2009,10/30/2006 Family History Medical History Relation Comments Depression Maternal Aunt Mental Health Maternal Aunt Arthritis Maternal Grandfather Cancer Maternal Grandfather Diabetes Maternal Grandfather Cancer Maternal Grandmother Diabetes Mother Gestational Mental Health Mother No Known Problems Sister Relation Status Comments Father Alive Maternal Aunt Maternal Grandfather Maternal Grandmother Mother Alive Sister Alive Social History Tobacco Use Types Packs/Day [...] Comments Blood Pressure 116/78 04/02/2022 3:12 PM POWDER CUTTING OPERATOR Pulse 62 04/02/2022 3:12 PM POWDER CUTTING OPERATOR Temperature 36.9 ??C (98.4 ??F) 04/02/2022 3:12 PM CS T Respiratory Rate 14 04/02/2022 3:12 PM POWDER CUTTING OPERATOR Oxygen Saturation 100% 04/02/2022 3:12 PM POWDER CUTTING OPERATOR Inhaled Oxygen Concentration - - Weight 106.1 kg (234 lb) 04/02/2022 3:12 PM POWDER CUTTING OPERATOR Height 172.7 cm (5' 8 ) 04/02/2022 3:12 PM POWDER CUTTING OPERATOR Body Mass Index 35.58 04/02/2022 3:12 PM POWDER CUTTING OPERATOR Plan of Treatment Health Maintenance Due Date Last Done Comments Cervical Cancer Screening Pap Smear (Age 21 to 29) Every 3 Years 1997 Cervical Cancer Screening 1997 Hepatitis C 2015 Annual Physical 04/02/2023 04/02/2022 COVID-19 Vaccine ( season) 2023 11/07/2020, 05/31/2020 Influenza Adult (#1) 2023 01/09/2022, 11/15/19 21 DTaP, Tdap and Td Vaccines (8 - Td or Tdap) 01/10/2032 01/09/2022, 07/21/2008, 12/31/2002, Additional history exists Hepatitis B Vaccines Completed 1997, 1997, 1997 Meningococcal Vaccine Aged Out 09/26/2014 No cyndie darren eligible based on patient's age to complete this topic HPV Vaccines Completed 08/18/2015, 04/2014, 10/02/2012, Additional history exists Pneumococcal Vaccine: Pediatrics (0 to 5 Years) and At-Risk Patients (6 to 64 Years) Aged Out No longer eligible based on patient's age to complete this topic RSV Immunizations Under 20 Months Aged Out No longer eligible based on patient's age to complete this topic Insurance [facility] Care Teams Senior Center Director Relationship Specialty Start Date End Date Daisy Henson MD [address] [place] [address] PCP - General FAMILY PRACTICE 10/26/23
--- OUTSIDE RECORDS SUMMARY | 2024-03-04 06:26 | XMS_ITS | Encounter Summary ---
Author Organization [facility] Address [address] [facility] [place] [address] [place] [address] Care Team Providers Care Farm Appraiser Name Role Phone Angie MelchorFANNY Primary Care Provider [phone] Encounter Details Date Type Department Care Team (Latest Contact Info) Description 04/02/2022 Travel Social History Tobacco Use Types Packs/Day [...] Coronavirus/COVID-19? No / Unsure 04/02/2022 3:00 PM SOCIAL SCIENCES LECTURER documented as of this encounter Plan of Treatment Not on file documented as of this encounter Visit Diagnoses Not on filedocumented in this encounter Additional Health Concerns Assessment Noted Time PHQ-9 Depression Total Score: 7 04/02/19 23 3:46 PM SOCIAL SCIENCES LECTURER documented as of this encounter Care Teams Farm Appraiser Relationship Specialty Start Date End Date Angie Melchor FNP-BC [facility] [place] [address] PCP - General NURSE PRACTITIONER 03/21/22 10/25/23 documented as of this encounter
--- OUTSIDE RECORDS SUMMARY | 2024-03-04 06:26 | XMS_ITS | Encounter Summary ---
Author Organization [facility] Address [address] [place] [address]. [place] [address] [place] [address] Care Team Providers Care Pattern Chain Maker Supervisor Name Role Phone Angie Melchor [facility] Primary Care Provider [phone] Reason for Visit * Reason Onset Date Comments Abdominal Pain 03/19/2023 Encounter Details Date Type Department Care Team (Late st Contact Info) Description 03/19/2023 Telephone [facility] Medical [facility] Family Medicine [address] [address] [facility] [address] [place] [address] Abdominal Pain Social History Tobacco Use Types Packs/Day Years [...] as of this encounter Progress Notes * Rhonda Adame MA - 03/19/2023 11:35 AM CST Pt informed to go to ER NING MANAGER * PREETHI Vee - 03/19/2023 10:55 AM CST Would recommend ER if pain is that bad as she will need stat ct etc NING MANAGER * Renetta Alfaro MA - 03/19/2023 8:52 AM CST Patient called stating she has RLQ pain and bloating ongoing since Friday 03/17. Patient denies fever but does have nausea and constipation.Patient is a 10 Patient is requesting and appt today if possible. Patient would like to avoid the ER if possible. NING MANAGER documented in this encounter Plan of Treatment Not on file documented as of this encounter Visit Diagnoses Not on filedocumented in this encounter Additional Health Concerns Assessment Noted Time PHQ-9 Depression Total Score: 7 04/02/19 23 3:46 PM SCANNING MANAGER documented as of this encounter Care Teams Pattern Chain Maker Supervisor Relationship Specialty Start Date End Date Angie Melchor FNP-BC [facility] [place] [address] PCP - General NURSE PRACTITIONER 03/21/22 10/25/23 documented as of this encounter
--- OUTSIDE RECORDS SUMMARY | 2024-03-04 06:26 | XMS_ITS | Encounter Summary ---
Author Organization [facility] Address [address] [place] [address]. [place], [place] [address] [place] [address] Care Team Providers Care Harness Installer Name Role Phone Angie Melchor Primary Care Provider [phone] Encounter Details Date Type Department Care Team (Late st Contact Info) Description 05/13/2022 Patient Self-Triage [facility] F[facility] DEFAULT [facility] Provider Social History Tobacco Use Types Packs/Day [...] Total Score: 7 04/02/19 23 3:46 PM MUSIC DIRECTOR documented as of this encounter Care Teams Harness Installer Relationship Specialty Start Date End Date Angie Melchor FNP-BC [address] [place] [id number] PCP - General NURSE PRACTITIONER 03/21/22 10/25/23 documented as of this encounter
--- OUTSIDE RECORDS SUMMARY | 2024-03-04 06:26 | XMS_ITS | Encounter Summary ---
Author Organization [facility] Address [facility] [address] [place] [address] Care Team Providers Care Restaurant Cook Name Role Phone Unavailable Primary Care Provider Unavailabl e Encounter Details Date Type Department Care Team (Late st Contact Info) Description 05/29/2020 Patient Self-Triage [facility] [address] [place] [address] [facility] Social History Tobacco Use Types [...]
--- OUTSIDE RECORDS SUMMARY | 2024-03-04 06:28 | XMS_ITS | Encounter Summary ---
Author Organization [facility] Address [address] [place] [address] Care Team Providers Care Deliverer Food Name Role Phone Radha Love MD Primary Care Provider Reason for Visit * Reason Comments Annual Exam Encounter Details Date Type Department Care Team (Late st Contact Info) Description 11/14/2020 10:30 AM CDT Office Visit [facility] Primary Care [address] [place] [address] Maida Solitario NP [address] [place] [address] Encounter for general adult medical examination with abnormal findings (Primary Dx); Need for vaccination; KE (generalized anxiety disorder); Mild major depression (HCC); Migraine with aura and without status migrainosus, not intractable; Screening for cervical cancer; Screening for lipid disorders; Class 2 obesity without serious comorbidity with body mass index (BMI) of 36.0 to 36.9 in adult, unspecified obesity type Social History Tobacco Use Types Packs/Day Years Used Date Smoking Tobacco: Every Day Vaping Alcohol Use Standard Drinks/Week Comments Never 0 (1 standard drink = 0.6 oz pur e alcohol) AUDIT-C Answer Date Recorded Q1: How often do you have a drink containing alc ohol? Monthly or less 11/14/2020 Average Number of Drinks Not on file 021 Frequency of Binge Drinking Not on file 10/26 PHQ-2 Answer Date Recorded PHQ-2 Total Score (If total score is 3 or more points, staff should administer the PHQ-9) 0 11/14/2020 Comments No Sex and Gender Information Value Date Recorded Sex Assigned at Not on file Legal Sex Female 6:49 PM CROP NUTRITION SCIENTIST Gender Identity Female 11/05/2020 10:44 PM CDT Sexual Orientation Straight 11/05/2020 10 :44 PM CDT documented as of this encounter Last Filed Vital Signs Vital Sign Reading Time Taken Comments Blood Pressure 112/80 11/14/2020 10:43 AM CDT Pulse 92 11/14/2020 10:43 AM CDT Temperature 36.2 ??C (97.2 ??F) 11/14/2020 1 0:43 AM CDT Respiratory Rate 18 11/14/2020 10:4 3 AM CDT Oxygen Saturation 99% 11/14/2020 10: 43 AM CDT Inhaled Oxygen Concentration - - Weight 107.8 kg (237 lb 9.6 oz) 021 10:43 AM CDT Height 172.7 cm (5' 8 ) 11/14/2020 10:4 3 AM CDT Body Mass Index 36.13 11/14/2020 10:43 AM CDT documented in this encounter Progress Notes * Maida Solitario, PSYCHIATRIC CLINICAL NURSE SPECIALIST - 11/14/2020 10:30 AM CDT Images from the original note were not included. Patient ID: Aishwarya Alicea is a 25 y.o. female. Chief Complaint. Chief Complaint Patient presents with ??? Annual Exam HPI. Patient is a 25 y.o. female here for annual wellness visit. 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 Has been on 3 years ago. Had done zoloft in the past. Made her very nauseated, bad side effects. Doing well on lexapro. Migraines: Non-existent now. Feels they were stress and dehydration triggered. Lexapro is helping stress and is drinking better. Aunt with thyroid issues: Hard to lose weight. Even if she is focusing hard. Family with DM Last Vision Exam: 1.5 years ago Last Dental Exam: 1.5 years ago Diet: Irregular, Not eating very often, mix of home and eating out, twice per week fast food. Exercise: Work Sexual Activity: Not currently, has previous had sex. ETOH: Socially Tobacco: Vape, 3 years Recreational Drugs: Denies Mammo: Great aunt with Breast Cancer, diagnosed 2 years ago. LMP: Last Friday PAP: Has not had her first PAP yet. Colon: unsure of family histroy, doesn't believe so Vaccines: Flu shot, did get covid vaccines, Moderna PHQ Screening Over the last 2 weeks, how often have you been bothered by any of the following problems? Little Interest or Pleasure in Doing Things: Not at all Feeling Down, Depressed, or Hopeless: Not at all PHQ-2 Total Score (If total score is 3 or more points, staff should administer the PHQ-9): 0 Over the past 2 weeks, how often have you been bothered by any of the following problems? Little Interest or Pleasure in Doing Things: Not at all Feeling Down, Depressed, or Hopeless: Not at all PHQ-2 Total Score (If total score is 3 or more points, staff should administer the PHQ-9): 0 Health Maintenance Topic Date Due ??? Regular Well Visit/Exam Never done ??? Chlamydia and Gonorrhea (GC/CT) Screening Never done ??? Cervical Cancer Screening-Pap Smear Never done ??? DTaP/Tdap/Td Vaccine (7 - Td or Tdap) 07/21/2018 ??? Depression Screening-PHQ 11/14/2021 ??? Covid-19 Vaccine Completed ??? Varicella Vaccines Completed ??? Influenza Vaccine Completed ??? HPV Vaccines Completed Past Medical History: Diagnosis Date ??? Anxiety History reviewed. No pertinent surgical history. No Known Allergies Social History Tobacco Use ??? Smoking status: Current Every Day Smoker Types: Vaping Substance Use Topics ??? Alcohol use: Never History reviewed. No pertinent family history. Current Medications: Outpatient Encounter Medications as of 11/14/2020 Medication Sig Dispense Refill ??? escitalopram (LEXAPRO) 10 mg tablet TAKE 1 TABLET DAILY (TAKING 10 AND 5 FOR TOTAL OF 15) 30 tablet 0 ??? escitalopram (LEXAPRO) 5 mg tablet TAKE 1 TABLET DAILY 30 tablet 0 ??? [DISCONTINUED] NUVARING 0.12-0.015 mg/24 hr vaginal ring INSERT 1 RING IN THE VAGINA MONTHLY 3 each 1 ??? [DISCONTINUED] SUMAtriptan (IMITREX) 100 mg tablet 100 mg No facility-administered encounter medications on file as of 11/14/2020. Review of Systems: Review of Systems Constitutional: Negative for fatigue and fever. HENT: Negative for postnasal drip, rhinorrhea, sore throat and trouble swallowing. Eyes: Negative for pain and redness. Respiratory: Negative for cough, shortness of breath and wheezing. Cardiovascular: Negative for chest pain, palpitations and leg swelling. Gastrointestinal: Negative for abdominal pain, blood in stool, constipation, diarrhea, nausea and vomiting. Genitourinary: Negative for difficulty urinating, dysuria, frequency and hematuria. Skin: Negative for rash and wound. Neurological: Negative for dizziness, weakness, light-headedness and headaches. Psychiatric/Behavioral: Negative for dysphoric mood. The patient is not nervous/anxious. BP 112/80 (BP Location: Left arm, Patient Position: Sitting) Pulse 92 Temp 36.2 ??C (97.2 ??F) (Temporal) Resp 18 Ht 172.7 cm (5' 8 ) Wt 107.8 kg (237 lb 9.6 oz) SpO2 99% BMI 36.13 kg/m?? Physical Exam: Physical Exam HENT: Head: Normocephalic and atraumatic. Right Ear: Tympanic membrane, ear canal and external ear normal. Left Ear: Tympanic membrane, ear canal and external ear normal. Nose: Nose normal. Mouth/Throat: Mouth: Mucous membranes are moist. Pharynx: Oropharynx is clear. Eyes: Conjunctiva/sclera: Conjunctivae normal. Pupils: Pupils are equal, round, and reactive to light. Cardiovascular: Rate and Rhythm: Normal rate and regular rhythm. Heart sounds: Normal heart sounds. No murmur heard. No friction rub. No gallop. Pulmonary: Effort: Pulmonary effort is normal. No respiratory distress. Breath sounds: Normal breath sounds. No wheezing or rales. Chest: Chest wall: No mass, lacerations, deformity, swelling, tenderness, crepitus or edema. There is no dullness to percussion. Breasts: Right: No swelling, bleeding, inverted nipple, mass, nipple discharge or tenderness. Left: No swelling, bleeding, inverted nipple, mass, nipple discharge or tenderness. Abdominal: General: Bowel sounds are normal. There is no distension. Palpations: Abdomen is soft. There is no mass. Tenderness: There is no abdominal tenderness. There is no guarding or rebound. Genitourinary: General: Normal vulva. Exam position: Lithotomy position. Labia: Right: No rash, tenderness, lesion or injury. Left: No rash, tenderness, lesion or injury. Vagina: Normal. Cervix: Normal. Musculoskeletal: General: No tenderness. Cervical back: Normal range of motion and neck supple. Lymphadenopathy: Cervical: No cervical adenopathy. Upper Body: Right upper body: No supraclavicular, axillary or pectoral adenopathy. Left upper body: No supraclavicular, axillary or pectoral adenopathy. Skin: General: Skin is warm and dry. Neurological: Mental Status: She is alert and oriented to person, place, and time. Cranial Nerves: No cranial nerve deficit. Deep Tendon Reflexes: Reflexes normal. Psychiatric: Behavior: Behavior normal. Thought Content: Thought content normal. Judgment: Judgment normal. Assessment & Plan: Diagnoses and all orders for this visit: Encounter for general adult medical examination with abnormal findings (Primary) Comments: Due for wellness labs, PAP completed today Orders: - Comprehensive metabolic panel; Future - CBC with auto differential; Future Need for vaccination - Flu Vaccine Quad PF 6m+ IM - Fluarix / FluLaval / Afluria KE (generalized anxiety disorder) Comments: Well controlled on medication Mild major depression (HCC) Comments: Well controlled on medication Migraine with aura and without status migrainosus, not intractable Comments: Stable of medication due to lexapro helping stress and increased fluid intake Screening for cervical cancer Comments: PAP Orders: - Pap with reflex to High Risk HPV; Future Screening for lipid disorders - Lipid panel; Future Class 2 obesity without serious comorbidity with body mass index (BMI) of 36.0 to 36.9 in adult, unspecified obesity type Comments: Checking routine wellness labs. Encourage healthy diet focusing on 3 small meals per day and 3 snacks. Lower carbohydrate, increased veggies. Orders: - Hemoglobin A1c; Future - TSH reflex to free T4; Future BMI Follow-up includes: education provided. Maida Solitario NP Cosigned by Radha Love MD at 11/14/2020 3:04 PM CDT documented in this encounter Plan of Treatment Scheduled Orders Name Type Priority Associated Diagnoses Orde r Schedule Pap with reflex to High Risk HPV Pathology and Cytology Routine Screening for cervical cancer Expected: 11/14/2020, Expires: 11/14/2021 documented as of this encounter Visit Diagnoses Diagnosis Encounter for general adult medical examination with abnormal findings- Primary Need for vaccination Need for prophylactic vaccination and inoculation against unspecified single disease KE (generalized anxiety disorder) Generalized anxiety disorder Mild major depression (HCC) Major depressive disorder, single episode, mild Migraine with aura and without status migrainosus, not intractable Screening for cervical cancer Screening for malignant neoplasm of the cervix Screening for lipid disorders Class 2 obesity without serious comorbidity with body mass index (BMI) of 36.0 to 36.9 in adult, unspecified obesity type documented in this encounter Discontinued Medications Medication Sig Discontinue Reason Start Date End Da te NUVARING 0.12-0.015 mg/24 hr vaginal ring INSERT 1 RING IN THE VAGINA MONTHLY 07/21/2018 11/14/2020 SUMAtriptan (IMITREX) 100 mg tablet 100 mg 09/11/2017 11/14/2020 documented as of this encounter Orders Immunization/Injection Count Last Ordered Date First Ordered Date FLU VACCINE QUAD PF 6M+ IM - FLUARIX / FLULAVAL / FLUZONE- SYRINGE 1 11/14/2020 documented in this encounter Care Teams Deliverer Food Relationship Specialty Start Date End Date Radha Love MD PCP - General Internal Medicine 06/17/18 documented as of this encounter
--- OUTSIDE RECORDS SUMMARY | 2024-03-04 06:28 | XMS_ITS | Encounter Summary ---
Author Organization [facility] Address [address] [place] [address] Care Team Providers Care Communications Advisor Name Role Phone Radha Love MD Primary Care Provider Encounter Details Date Type Department Care Team (Latest Contact Info) Description 11/14/2020 7:47 AM CDT - 11/14/2020 11:59 PM CDT Hospital Encounter 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 Gender Identity Female 11/05/2020 10:44 PM CDT Sexual Orientation Straight 11/05/2020 10 :44 PM CDT documented as of this encounter Medications at Time of Discharge escitalopram (LEXAPRO) 10 mg tablet TAKE 1 TABLET DAILY (TAKING 10 AND 5 FOR TOTAL OF 15) 30 tablet 05/03/2020 12/19/2020 escitalopram (LEXAPRO) 5 mg tablet TAKE 1 TABLET DAILY 30 tablet 05/03/2020 12/19/2020 documented as of this encounter Discharge Disposition Disposition Code Departure Means Destination Discharge to home or self care documented in this encounter Plan of Treatment Scheduled Orders Name Type Priority Associated Diagnoses Orde r Schedule Pap with reflex to High Risk HPV Pathology and Cytology Routine Screening for cervical cancer Once for 1 Occurrences starting 11/15/2020 until 11/15/2020 documented as of this encounter Visit Diagnoses Diagnosis Screening for cervical cancer Screening for malignant neoplasm of the cervix documented in this encounter Care Teams Communications Advisor Relationship Specialty Start Date End Date Radha Love MD PCP - General Internal Medicine 06/17/18 documented as of this encounter
--- OUTSIDE RECORDS SUMMARY | 2024-03-04 06:28 | XMS_ITS | Encounter Summary ---
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 This will need repeated in 3 years. documented in this encounter Plan of Treatment Not on file documented as of this encounter Visit Diagnoses Not on filedocumented in this encounter Care Teams Talent Buyer Relationship Specialty Start Date End Date Radha Love MD PCP - General Internal Medicine 06/17/18 documented as of this encounter
--- OUTSIDE RECORDS SUMMARY | 2024-03-04 06:28 | XMS_ITS | Encounter Summary ---
Author Organization [facility] Address [address] [place] [address] Care Team Providers Care Press Cleaner Name Role Phone Unavailable Primary Care Provider Unavailabl e Encounter Details Date Type Department Care Team (Late st Contact Info) Description 01/12/2020 Lab Requisition [facility] [address] [place] [address] [place] [address] [place] [address] Social History Tobacco Use Types Packs/Day Years Used Date Smoking Tobacco: Never Assessed Comments Unknown Sex and Gender Information Value Date Recorded Sex Assigned at Not on file 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
--- OUTSIDE RECORDS SUMMARY | 2024-03-04 06:28 | XMS_ITS | Encounter Summary ---
Author Organization [facility] Healthcare Address [address] [place] [address] Care Team Providers Care Infection Control Preventionist Name Role Phone Unavailable Primary Care Provider Unavailabl e Encounter Details Date Type Department Care Team (Latest Contact Info) Description 09/16/2015 2:46 AM CDT - 09/16/2015 4:22 AM CDT Hospital Encounter [facility] Clark Arnett DO [address] [place] [address] Major depressive disorder, single episode (CMS/HCC) Social History Tobacco Use Types Packs/Day Years Used Date Smoking Tobacco: Never Assessed Comments Unknown Sex and Gender Information Value Date Recorded Sex Assigned at Not on file 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 Gender Identity Female 11/05/2020 10:44 PM CDT Sexual Orientation Straight 11/05/2020 10 :44 PM CDT documented as of this encounter Last Filed Vital Signs Vital Sign Reading Time Taken Comments Blood Pressure 119/75 09/16/2015 2:50 AM CDT Pulse 72 09/16/2015 2:50 AM CDT Temperature 36.9 ??C (98.4 ??F) 09/16/2015 2:50 AM CD T Respiratory Rate - - Oxygen Saturation 99% 09/16/2015 2:50 AM CDT Inhaled Oxygen Concentration - - Weight 78.9 kg (174 lb) 09/16/2015 2:50 AM CDT Height 172.7 cm (5' 8 ) 09/16/2015 2:50 AM CDT Body Mass Index 26.46 09/16/2015 2:50 AM CDT Body Mass Index Percentile 86.88% 09/16/2015 2:5 0 AM CDT Growth Chart: [facility] (Girls, 2- 20 Years) documented in this encounter Plan of Treatment Not on file documented as of this encounter Procedures Procedure Name Priority Date/Time Associated Diagnosis Comments THYROID FUNCTION CASCADE Routine 09/16/2015 3:52 AM CDT CBC WITH AUTO DIFFERENTIAL Routine 09/16/2015 3:52 AM CDT MAGNESIUM Routine 09/16/2015 3:52 AM CDT ETHANOL Routine 09/16/2015 3:52 AM CDT ACETAMINOPHEN LEVEL Routine 09/16/2015 3 :52 AM CDT SALICYLATE LEVEL Routine 09/16/2015 3:52 AM CDT COMPREHENSIVE METABOLIC PANEL Routine 09/16/2015 3:52 AM CDT UA WITH CULTURE REFLEX Routine 6 3:04 AM CDT DRUGS OF ABUSE SCREEN, URINE WITHOUT CONFIRMATION Routine 09/16/2015 3:04 AM CDT documented in this encounter Results * TSH reflex to free T4 (09/16/2015 3:52 AM CDT) TSH W REFLEX TO FT4 2.95 0.27 - 4.20 uIU/mL 09/16/2015 4:44 AM CDT [facility] [employer] HISTORICAL RESULTS 09/16/2015 3:52 AM CDT 09/16/2015 4:02 AM CDT us Clark Arnett DO LAB BLOOD ORDERABLES Final Result [facility] * Salicylate level (09/16/2015 3:52 AM CDT) Salicylates < 1 0 - 29 mg/dL 09/16/2015 6:20 AM CDT [facility] HISTORICAL RESULTS 09/16/2015 3:52 AM CDT 09/16/2015 4:02 AM CDT Clark Arnett DO LAB BLOOD ORDERABLES Final Result Performing Organization Address [facility] de Phone Number [facility] HISTORICAL RESULTS * Magnesium (09/16/2015 3:52 AM CDT) Magnesium 2.1 1.6 - 2.6 mg/dL 09/16/2015 4:44 AM CDT [facility] HISTORICAL RESULTS Comment:Magnesium sulfate th erapy: 3.0-9.1 mg/dL 09/16/2015 3:52 AM CDT 09/16/2015 4:02 AM CDT Clark Arnett DO LAB BLOOD ORDERABLES Final Result Performing Organization Address [facility] de Phone Number [facility] HISTORICAL RESULTS * Ethanol (09/16/2015 3:52 AM CDT) Ethyl Alcohol < 10 mg/dL 09/16/2015 4:44 AM T [facility] HISTORICAL RESULTS Comment:% = mg/dL x .001 09/16/2015 3:52 AM CDT 09/16/2015 4:02 AM CDT Clark Arnett DO LAB BLOOD ORDERABLES Final Result Performing Organization Address [facility] de Phone Number [facility] HISTORICAL RESULTS * (ABNORMAL) Comprehensive metabolic panel (09/16/2015 3:52 AM CDT) Sodium 141 135 - 145 mmol/L 09/16/2015 4:44 AM CDT [facility] HISTORICAL RESULTS Potassium 4.0 3.3 - 5.1 mmol/L Chloride 103 96 - 108 mmol/L Carbon Dioxide 27 22 - 32 mmol/L Anion Gap 11 7 - 16 Glucose 98 70 - 100 mg/dL BUN 12 6 - 20 mg/dL Creatinine 1.0 0.5 - 1.1 mg/dL Comment: NOTE: Estimated GFR (Cockroft-Gault) will NOT be calculated unless patient Height and Weight were entered. Also, Kidney Disease Stage (GFR) and Estimated GFR (Cockroft-Gault) will NOT be calculated if Creatinine result is <0.2. Kidney Disease Stage 77 mL/MIN Comment: NOTE; ??The GFR is an estimated value using the creatinine, sex, age, and race of the patient. THE ESTIMATED GFR IS VALIDATED FOR AGES 18-70 YEARS STAGE ?mL/Min ?DESCRIPTION ??1 ?90 mL/min or more ?Normal or elevated GFR ??2 ? 60-89 mL/min ?Mildly decreased GFR ??3 ? 30-59 mL/min ?Moderately decreased GFR ??4 ? 15-29 mL/min ?Severely decreased GFR ??5 ? <15 mL/min ? Kidney failure or on dialysis @ Est GFR (Cockcroft-G) 101 ml/MIN Calcium 9.6 8.6 - 10.0 mg/dL 09/16/2015 4:44 AM T [facility] HISTORICAL RESULTS Total Protein 7.3 6.4 - 8.3 g/dL Albumin 4.4 3.5 - 5.2 g/dL Globulin 2.9 2.3 - 3.5 gm/dL Albumin/Globulin Ratio 1.5 1.1 - 1.8 Total Bilirubin 0.2 0.0 - 1.2 mg/dL AST 18 0 - 32 U/L ALT 15 0 - 33 U/L Alkaline Phosphatase 125(H) 35 - 104 U/L 09/16/2015 3:52 AM CDT 09/16/2015 4:02 AM CDT Clark Arnett DO LAB BLOOD ORDERABLES Final Result [facility] HISTORICAL RESULTS * (ABNORMAL) CBC with auto differential (09/16/2015 3:52 AM CDT) Pathologist [facility] WBC 9.0 4.6 - 10.2 x10 3/ul RBC 4.65 3.76 - 4.80 x10 6/ul Hemoglobin 11.5 11.0 - 15.0 g/dl Hct 37.2 33.0 - 43.0 % MCV 80.0 80.0 - 97.0 fl MCH 24.7(L) 27.0 - 31.2 pg MCHC 30.9(L) 31.8 - 35.4 g/dl RDW 14.8 11.6 - 14.8 % Plt Count 289 124 - 400 x10 3/ul MPV 10.0 7.4 - 10.4 fl Neut % 65.5 37.0 - 85.0 % Immature Gran % 0.6 0.0 - 3.0 % Lymph % 27.0 5.0 - 45.0 % [place] % 5.7 3.0 - 15.0 % Eos % 0.6 0.0 - 7.0 % Baso % 0.6 0.0 - 2.0 % Absolute Neuts (auto) 5.9 1.7 - 8.7 x10 3/ul Immature Gran # 0.1 0.0 - 0.3 x10 3/ul Absolute Lymphs (auto) 2.4 0.2 - 4.6 x10 3/ul Absolute Monos (auto) 0.5 0.1 - 1.5 x10 3/ul 09/16/2015 4:04 AM T [facility] HISTORICAL RESULTS Absolute Eos (auto) 0.1 0.0 - 0.7 x10 3/ul 09/16/2015 4:04 AM T [facility] HISTORICAL RESULTS Absolute Basos (auto) 0.1 0.0 - 0.2 x10 3/ul 09/16/2015 4:04 AM T [facility] HISTORICAL RESULTS 09/16/2015 3:52 AM CDT 09/16/2015 4:02 AM CDT Clark Arnett DO LAB BLOOD ORDERABLES Final Result Performing Organization Address [facility] de Phone Number [facility] HISTORICAL RESULTS * (ABNORMAL) Acetaminophen level (09/16/2015 3:52 AM CDT) Acetaminophen < 5.0(L) 10.0 - 30.0 ug/mL 09/16/2015 6:20 AM T [facility] HISTORICAL RESULTS Comment: Acetaminophen concentrations greater than 200 ug/mL at four hours after ingestion and greater than 50 ug/mL at 12 hours after ingestion are often associated with toxicity. 09/16/2015 3:52 AM CDT 09/16/2015 4:02 AM CDT Clark Arnett DO LAB BLOOD ORDERABLES Final Result Performing Organization Address [facility] Co de Phone Number [facility] HISTORICAL RESULTS * Drug Screen, Urine without Confirmation (09/16/2015 3:04 AM CDT) Ur Amphetamine Screen NEGATIVE NEGATIVE 09/16/2015 4:14 AM T [facility] HISTORICAL RESULTS Comment: Cutoff Limit: ??1000 ng/mL ??Detects MDMA, MDA, d-Amphetamine, d-Methamphetamine, ?MBDB-HCl, MDEA and BDB-HCl Note: ??Positive results from this drug screen are unconfirmed. ??Unconfirmed screening results should not be used for non-medical purposes. Ur Barbiturates Screen NEGATIVE NEGATIVE Comment: Cutoff limit: ??200 ng/mL ??Detects Secobarbitol, Cyclopentobarbital, Aprobarbital, ?Butalbital, Allobarbital, Butabarbital, ?Pentobarbital, Amobarbital and Phenobarbital U Benzodiazepines Scrn NEGATIVE NEGATIVE Comment:Cutoff limit: 300 ng /mL U Cannabinoids Screen NEGATIVE NEGATIVE Comment:Cutoff Limit: 50 ng/ mL U Cocaine Metab Screen NEGATIVE NEGATIVE Comment:Cutoff limit: 300 ng /mL Urine Opiates Screen NEGATIVE NEGATIVE Comment: Cutoff Limit: ??300 ng/mL Detects Morphine, Codeine, Ethyl Morphine, ?Diacetylmorphine, 6-Acetylmorphine, Dihydrocodeine, ?Kjhwugua-3-zjhuzgrizvh and Hydrocodone Ur Oxycodone Screen NEGATIVE NEGATIVE 09/15 4:14 AM [facility] HISTORICAL RESULTS Comment:Cutoff Limit: 100 ng /mL Urine Creatinine/DIANNE 91.2 mg/dL Comment:If Creatinine is < 4 0 mg/dL, recollection is suggested. 09/16/2015 3:04 AM CDT 09/16/2015 3:13 AM T Narrative [facility] HISTORICAL RESULTS - 09/16/2015 4:14 AM CDT Collected By vt us Clark Arnett DO LAB URINE ORDERABLES Final Result [facility] HISTORICAL RESULTS * UA with Culture Reflex (09/16/2015 3:04 AM CDT) Ur Collection Type CLEAN CATCH Ur Culture Indicated? C&S NOT INDICATED Urine Color STRAW YELLOW Urine Clarity CLEAR CLEAR Urine Glucose (UA) NORMAL NORMAL mg/dL Urine Bilirubin NEGATIVE NEGATIVE mg/dl Urine Ketones NEGATIVE NEGATIVE mg/dL Ur Specific [place] 1.012 1.005 - 1.025 Urine Blood NEGATIVE NEGATIVE mg/dl Urine pH 6.0 5.0 - 8.0 Urine Protein NEGATIVE NEGATIVE mg/dL Urine Urobilinogen NORMAL NORMAL mg/dL Urine Nitrite NEGATIVE NEGATIVE Ur Leukocyte Esterase NEGATIVE NEGATIVE Rosey/ul Ur Microscopic Review Not Indicated 09/16/2015 3:04 AM CDT 09/16/2015 3:13 AM T us Clrak Arnett DO LAB URINE ORDERABLES Final Result [facility] HISTORICAL RESULTS documented in this encounter Visit Diagnoses Diagnosis Major depressive disorder, single episode Major depressive disorder, single episode, unspecified documented in this encounter
--- OUTSIDE RECORDS SUMMARY | 2024-03-04 06:28 | XMS_ITS | Encounter Summary ---
Author Organization [facility] Address [address] [place] [address] Care Team Providers Care Director Of Social Media Marketing Name Role Phone Radha Love MD Primary Care Provider Reason for Visit * Reason Comments Sinusitis sore throat, sinus p ressure, ears feel clogged, runny nose Encounter Details Date Type Department Care Team (Latest Contact Info) Description 11/04/2018 2:15 PM CDT Office Visit [facility] Primary Care [address] [phone] Gabriel Flynn MD [address] [address] Acute nasopharyngitis (Primary Dx) Social History Tobacco Use Types Packs/Day Years Used Date Smoking Tobacco: Never Alcohol Use Standard Drinks/Week Comments Never 0 (1 standard drink = 0.6 oz pur e alcohol) AUDIT-C Answer Date Recorded Frequency of Alcohol Consumption Never 06/17/2018 Average Number of Drinks Not on file 019 Frequency of Binge Drinking Not on file 05/26 Comments No Sex and Gender Information Value Date Recorded Sex Assigned at Not on file 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 Gender Identity Female 11/05/2020 10:44 PM CDT Sexual Orientation Straight 11/05/2020 10 :44 PM CDT documented as of this encounter Last Filed Vital Signs Vital Sign Reading Time Taken Comments Blood Pressure 124/90 11/04/2018 1:43 PM CDT Pulse 120 11/04/2018 1:43 PM CDT Temperature 36.9 ??C (98.4 ??F) 11/04/2018 1:43 PM CD T Respiratory Rate 16 11/04/2018 1:43 PM CDT Oxygen Saturation 99% 11/04/2018 1:43 PM CDT Inhaled Oxygen Concentration - - Weight 93.4 kg (206 lb) 11/04/2018 1:43 PM CDT Height 170.2 cm (5' 7 ) 11/04/2018 1:43 PM CDT Body Mass Index 32.26 11/04/2018 1:43 PM CDT documented in this encounter Progress Notes * Gabriel Flynn MD - 11/04/2018 2:15 PM CDT Images from the original note were not included. Subjective/Objective Patient ID: Aishwarya Alicea is a 23 y.o. female. Chief Complaint Sinusitis (sore throat, sinus pressure, ears feel clogged, runny nose) Vitals: 11/04/18 1343 BP: 124/90 BP Location: Right arm Patient Position: Sitting Pulse: 120 Resp: 16 Temp: 36.9 ??C (98.4 ??F) SpO2: 99% Weight: 93.4 kg (206 lb) Height: 170.2 cm (5' 7 ) HPI: Aishwarya Alicea is a 23 y.o. female here today for the following complaints: 1. Acute nasopharyngitis - Pt here for 1 wk of sore throat, cough, congestion, rhinorrhea and fatigue. She denies fevers. Review of Systems Constitutional: Positive for appetite change (decreased) and fatigue. Negative for chills and fever. HENT: Positive for congestion, rhinorrhea and sore throat. Negative for ear pain, sinus pressure and sinus pain. Respiratory: Positive for cough. Negative for shortness of breath (nonproductive). Cardiovascular: Negative. Gastrointestinal: Negative. Physical Exam Constitutional: She is oriented to person, place, and time. She appears well- developed and well-nourished. HENT: Head: Normocephalic and atraumatic. Right Ear: Tympanic membrane and external ear normal. Tympanic membrane is not injected, not erythematous and not bulging. No middle ear effusion. Left Ear: Tympanic membrane and external ear normal. Tympanic membrane is not injected, not erythematous and not bulging. No middle ear effusion. Nose: Mucosal edema and rhinorrhea present. Mouth/Throat: Uvula is midline, oropharynx is clear and moist and mucous membranes are normal. No oropharyngeal exudate, posterior oropharyngeal edema or posterior oropharyngeal erythema. Eyes: Pupils are equal, round, and reactive to light. Conjunctivae are normal. Cardiovascular: Normal rate, regular rhythm and normal heart sounds. Exam reveals no gallop and no friction rub. No murmur heard. Pulmonary/Chest: Breath sounds normal. No respiratory distress. She has no wheezes. She has no rales. Lymphadenopathy: Head (right side): Submandibular adenopathy present. Head (left side): Submandibular adenopathy present. She has cervical adenopathy. Right cervical: Superficial cervical adenopathy present. Left cervical: Superficial cervical adenopathy present. Neurological: She is alert and oriented to person, place, and time. Skin: Skin is warm and dry. Psychiatric: She has a normal mood and affect. Her behavior is normal. Judgment and thought contentnormal. Nursing note and vitals reviewed. Assessment/Plan Diagnoses and all orders for this visit: Acute nasopharyngitis (Primary) - POCT rapid strep A - negative - viral URI - OTC tx - ibuprofen, decongestants, rest fluids - f/u if sx worsen or fever develops Orders Placed This Encounter Procedures ??? POCT rapid strep A *This note is dictated using Hively voice recognition software, variances in spelling and vocabulary are possible and unintentional.* Gabriel Flynn MD documented in this encounter Plan of Treatment Not on file documented as of this encounter Procedures Procedure Name Priority Date/Time Associated Diagnosis Comments POCT RAPID STREP Routine 11/04/2018 1:52 PM CDT Acute nasopharyngitis documented in this encounter Results * POCT rapid strep A (11/04/2018 1:52 PM CDT) Rapid Strep A, POC Negative Swab 11/04/2018 1:52 PM CDT Narrative Myah Lilly MA - 11/04/2018 1:52 PM CDT Lot [id number] exp 02/13/21 Gabriel Flynn MD POINT OF CARE TEST ORDER VAHID Final Result documented in this encounter Visit Diagnoses Diagnosis Acute nasopharyngitis- Primary Acute nasopharyngitis (common cold) documented in this encounter Historical Medications * This list may reflect changes made after this encounter. escitalopram (LEXAPRO) 10 mg tablet Take 10 mg by mouth daily 12/20/2017 02/05/2019 added in this encounter Care Teams Director Of Social Media Marketing Relationship Specialty Start Date End Date Radha Love MD PCP - General Internal Medicine 06/17/18 documented as of this encounter
--- OUTSIDE RECORDS SUMMARY | 2024-03-04 06:28 | XMS_ITS | Encounter Summary ---
Author Organization [facility] Address [address] [place] [address] Care Team Providers Care Rack Worker Name Role Phone Unavailable Primary Care Provider Unavailabl e Encounter Details Date Type Department Care Team (Latest Contact Info) Description 11/27/2017 2:00 PM CDT Hospital Encounter [facility] Deyanira Weir PA [facility] [id number] Acute cystitis with hematuria Social History Tobacco Use Types Packs/Day Years Used Date Smoking Tobacco: Never Assessed Comments Unknown Sex and Gender Information Value Date Recorded Sex Assigned at Not on file 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 Gender Identity Female 11/05/2020 10:44 PM CDT Sexual Orientation Straight 11/05/2020 10 :44 PM CDT documented as of this encounter Medications at Time of Discharge Medication Sig Dispense Quantity Refills Last Filled Start D ate End Date SUMAtriptan (IMITREX) 100 mg tablet 100 mg 09/11/2017 11/14/2020 documented as of this encounter Plan of Treatment Not on file documented as of this encounter Procedures Procedure Name Priority Date/Time Associated Diagnosis Comments MICROBIOLOGY SPECIMEN REPORT (CONVERTED) Routine 11/27/2017 2:00 PM CDT documented in this encounter Results * Microbiology Specimen Report (Converted) (11/27/2017 2:00 PM CDT) 11/27/2017 2:00 PM CDT 11/27/2017 3:26 PM CDT [facility] HISTORICAL RESULTS - 11/27/2017 2:00 PM CDT Microbiology Specimen Report (Converted) SPECIMEN [id number] ?? COLLECTED: 2017-11-27 14:00:00 RN ?? REQ#: [id number] REQUESTING DR: Deyanira Morales ?? SOURCE: URINE ?? SP DESC: CLEAN CATC --- PROCEDURE --- ?--- RESULT --- ?? CULTURE URINE ??(Final) ??- ??Performed at [facility] ?* COLONY COUNT: 2,000 CFU/ml ?* GRAM POSITIVE ORGANISMS ?? * Organism 1 - ESCHERICHIA COLI [E COLI] ?* COLONY COUNT: 20,000 CFU/ml ?* SEE SUSCEPTIBILITY REPORT BELOW ? [E COLI] ? M.I.C. ?RX AMOXICILLIN/CLAVULANIC ACID ?4 ? S AMPICILLIN ? >=32 ?R AMPICILLIN/SULBACTAM ? 16 ?I CEFAZOLIN ?<=4 ? S CEFEPIME ? <=1 ? S CEFTRIAXONE ?<=1 ? S CIPROFLOXACIN ?<=0.25 ?S ERTAPENEM ?<=0.5 ? S GENTAMICIN ? <=1 ? S IMIPENEM ? <=0.25 ?S LEVOFLOXACIN ? <=0.12 ?S NITROFURANTOIN ? 32 ?S PIPERACILLIN/TAZOBACTAM ?<=4 ? S TRIMETHOPRIM/SULFAMETHOXAZOLE ??<=20 ?S TOBRAMYCIN ? <=1 ? S ??S=Susceptible ?? I=Intermediate ?? S=Resistant ??SDD=Susceptible Dose Dependent ?? N/R=No Report ?JOSSE =Beta Lactamase - [facility] ? [address] ? [place] [address] ? Devon Castañeda MD Procedure Note 05/16/2018 Microbiology Specimen Report (Converted) SPECIMEN [id number] COLLECTED: 2017-11-27 14:00:00 RN REQ#:[id number] REQUESTING DR: Deyanira Morales SOURCE: URINE SP DESC: CLEAN CATC --- PROCEDURE --- --- RESULT --- CULTURE URINE (Final) - Performed at [facility] * COLONY COUNT: 2,000 CFU/ml * GRAM POSITIVE ORGANISMS * Organism 1 - ESCHERICHIA COLI [E COLI] * COLONY COUNT: 20,000 CFU/ml * SEE SUSCEPTIBILITY REPORT BELOW [E COLI] M.I.C. RX AMOXICILLIN/CLAVULANIC ACID 4 S AMPICILLIN >=32 R AMPICILLIN/SULBACTAM 16 I CEFAZOLIN <=4 S CEFEPIME <=1 S CEFTRIAXONE <=1 S CIPROFLOXACIN <=0.25 S ERTAPENEM <=0.5 S GENTAMICIN <=1 S IMIPENEM <=0.25 S LEVOFLOXACIN <=0.12 S NITROFURANTOIN 32 S PIPERACILLIN/TAZOBACTAM <=4 S TRIMETHOPRIM/SULFAMETHOXAZOLE <=20 S TOBRAMYCIN <=1 S S=Susceptible I=Intermediate S=Resistant SDD=Susceptible Dose Dependent N/R=No Report JOSSE =Beta Lactamase - [address] [address] Devon Castañeda MD us Deyanira FOY LAB BLOOD ORDERABLES Paulette kasper Result [facility] HISTORICAL RESULTS documented in this encounter Visit Diagnoses Diagnosis Acute cystitis with hematuria documented in this encounter
--- OUTSIDE RECORDS SUMMARY | 2024-03-04 06:28 | XMS_ITS | Clinical Summary ---
Author Organization [facility] Address [address] [place] [address] Care Team Providers Care Curtain Mender Name Role Phone Radha Love MD Primary Care Provider Allergies No known active allergies Medications escitalopram (LEXAPRO) 10 mg tablet TAKE 1 TABLET DAILY. TAKE 10 MG AND 5 MG FOR TOTAL OF 15 MG (NEED TO SCHEDULE AN APPOINTMENT BEFORE ANY MORE REFILLS ARE SENT) 30 tablet 11 1 Active escitalopram (LEXAPRO) 5 mg tablet TAKE 1 TABLET DAILY. NEED TO SCHEDULE AN APPOINTMENT BEFORE ANY MORE REFILLS ARE SENT 30 tablet 11 1 Active Active Problems Problem Noted Date Diagnosed Date Mild major depression 06/06/2020 Migraine with aura and witho ut status migrainosus, not intractable 06/06/2020 KE (generalized anxiety disorder) 12/17/2017 Immunizations Name Administration Dates Next Due DTaP 12/31/2002, 9,1997,05/26,1997 HPV, Quadrivalent 08/18/2015, 5,10/02/2012,07/16 Hep A, Pediatric 08/17/2009,07/21/2008 Hep B, Adolescent or Pediatric 1997,1997,1997 Hib (HbOC) 1997,1997,1997 Hib (PRP-T) 05/11/1998 IPV 12/31/2002, 9,1997,03/28 Influenza, Quadrivalent, Spl it, Preservative Free, Intramuscular 11/14/2020 MMR 12/31/2002,05/11/1998 Meningococcal Polysaccharide (Menomune) 09/26/2014 Moderna SARS-CoV-2 Monovalen t Vaccination (12+ YRS) 11/07/2020 PPD TEST 08/22/2015 Tdap 07/21/2008 Varicella 08/17/2009,10/30/2006 Medical History Medical History Date Comments Anxiety Family History Relation Name Status Comments Father Alive Mother Alive Social History Tobacco Use Types [...] staff should administer the PHQ-9) 0 11/14/2020 Personal Safety Answer Date Recorded Getting School Help Needed Not on file 04/26 Comments No Sex and Gender Information Value Date Recorded Sex Assigned at Not on file 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 Gender Identity Female 11/05/2020 10:44 PM CDT Sexual Orientation Straight 11/05/2020 10 :44 PM CDT Obstetrics History Last Filed Vital Signs Vital Sign Reading [...] Mass Index 36.13 11/14/2020 10:43 AM CDT Plan of Treatment Health Maintenance Due Date Last Done Comments Cervical Cancer Screening 1997 Hepatitis C Screening 1997 Pneumococcal vaccine <65 (1 of 2 - PCV) 2003 DTaP/Tdap/Td Vaccine (7 - Td or Tdap) 07/21/2018 07/21/2008, 12/31/2002, 12/12/1998, Additional history exists Depression Screening 11/14/2021 11/14/2020 Regular Well Visit/Exam 18-64 11/14/2021 11/14/2020 Covid-19 Vaccine (2023-2 5 season) 2023 11/07/2020, 05/31/2020 Influenza Vaccine (#1) 2023 11/14/2020 Varicella Vaccines Completed 08/17/2009, 10/30/2006 HPV Vaccines Completed 08/18/2015, 0804/2014, 10/02/2012, Additional history exists Insurance [employer] [facility] CHOICE PLUS [place] [id number] [facility] CHOICE PLUS [employer] Care Teams Curtain Mender Relationship Specialty Start Date End Date Radha Love MD PCP - General Internal Medicine 06/17/18
--- OUTSIDE RECORDS SUMMARY | 2024-03-04 06:28 | XMS_ITS | Encounter Summary ---
Author Organization [facility] Address [address] [place] [address] Care Team Providers Care Project Administrator Name Role Phone Radha Love MD Primary Care Provider Reason for Visit * Reason Comments Chills Body aches, chills, sore throat, congestion x 2 days Encounter Details Date Type Department Care Team (Late st Contact Info) Description 06/17/2018 6:45 PM CDT Office Visit [facility] After Hours Clinic [address] [place] [address] Abraham Barba MD [address] [facility] [facility] [address] [place], [place] [id number] Body aches (Primary Dx); Sore throat Social History Tobacco Use Types Packs/Day Years [...] on file 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 Gender Identity Female 11/05/2020 10:44 PM CDT Sexual Orientation Straight 11/05/2020 10 :44 PM CDT documented as of this encounter Last Filed Vital Signs Vital Sign Reading Time Taken Comments Blood Pressure 110/82 06/17/2018 6:38 PM CDT Pulse 133 06/17/2018 6:38 PM CDT Temperature 37.3 ??C (99.1 ??F) 06/17/2018 6:38 PM CD T Respiratory Rate 18 06/17/2018 6:38 PM CDT Oxygen Saturation 97% 06/17/2018 6:38 PM CDT Inhaled Oxygen Concentration - - Weight 82 kg (180 lb 12.8 oz) 06/17/2018 6:38 PM CDT Height 170.2 cm (5' 7 ) 06/17/2018 6:38 PM CDT Body Mass Index 28.32 06/17/2018 6:38 PM CDT documented in this encounter Ordered Prescriptions Prescription Sig Dispense Quantity Refills Last Filled Start Date End Date amoxicillin-clavul anate (AUGMENTIN) 875-125 mg per tabletIndications: Sore throat Take 1 tablet by mouth 2 (two) times a day for 10 days 20 tablet 06/17/2018 06/27/2018 documented in this encounter Progress Notes * Abraham Barba MD - 06/17/2018 6:45 PM CDT Images from the original note were not included. Patient ID: Aishwarya Alicea is a 23 y.o. female. Chief Complaint. Chief Complaint Patient presents with ??? Chills Body aches, chills, sore throat, congestion x 2 days HPI. Patient is a 23 y.o. female Sore Throat This is a new (Body aches, pressure headache. ) problem. The current episode started in the past 7 days. The problem has been gradually worsening. The maximum temperature recorded prior to her arrival was 100.4 - 100.9 F. The pain is at a severity of 3/10. The pain is mild. Pertinent negatives include no abdominal pain, congestion, coughing, diarrhea, drooling, ear pain, headaches, shortness of breath, stridor, swollen glands or trouble swallowing. The treatment provided no relief. History reviewed. No pertinent past medical history. History reviewed. No pertinent surgical history. No Known Allergies Social History Tobacco Use ??? Smoking status: Never Smoker Substance Use Topics ??? Alcohol use: Never Frequency: Never History reviewed. No pertinent family history. Current Medications: Outpatient Encounter Medications as of 06/17/2018 Medication Sig Dispense Refill ??? NUVARING 0.12-0.015 mg/24 hr vaginal ring I 1 RING VAG MONTHLY 0 ??? SUMAtriptan (IMITREX) 100 mg tablet 100 mg ??? [DISCONTINUED] escitalopram (LEXAPRO) 10 mg tablet 10 mg daily ??? amoxicillin-clavulanate (AUGMENTIN) 875-125 mg per tablet Take 1 tablet by mouth 2 (two) times a day for 10 days 20 tablet 0 No facility-administered encounter medications on file as of 06/17/2018. Review of Systems: Review of Systems Constitutional: Negative for fatigue, fever and unexpected weight change. HENT: Positive for sore throat. Negative for congestion, drooling, ear pain and trouble swallowing. Respiratory: Negative for cough, shortness of breath and stridor. Cardiovascular: Negative for chest pain and palpitations. Gastrointestinal: Negative for abdominal pain and diarrhea. Endocrine: Negative for cold intolerance and heat intolerance. Skin: Negative for rash. Neurological: Negative for headaches. Psychiatric/Behavioral: Negative for agitation, behavioral problems and confusion. BP 110/82 (BP Location: Right arm, Patient Position: Sitting) Pulse (!) 133 Temp 37.3 ??C (99.1??F) (Oral) Resp 18 Ht 170.2 cm (5' 7 ) Wt 82 kg (180 lb 12.8 oz) LMP 05/17/2018 SpO2 97% BMI 28.32 kg/m?? Physical Exam: Physical Exam Constitutional: She is oriented to person, place, and time. Vital signs are normal. She appears well-developed and well-nourished. No distress. HENT: Head: Normocephalic and atraumatic. Mouth/Throat: No oropharyngeal exudate. Tonsils are 3+ on the right. Tonsils are 3+ on the left. Tonsillar exudate. Eyes: Pupils are equal, round, and reactive to light. EOM are normal. Neck: Normal range of motion. Neck supple. Cardiovascular: Normal rate, regular rhythm, normal heart sounds and intact distal pulses. Pulmonary/Chest: Effort normal and breath sounds normal. Neurological: She is alert and oriented to person, place, and time. Skin: She is not diaphoretic. Psychiatric: She has a normal mood and affect. Her behavior is normal. Judgment and thought contentnormal. Nursing note and vitals reviewed. Assessment & Plan: Diagnoses and all orders for this visit: Body aches (Primary) - POCT influenza A/B Sore throat - POCT rapid strep A - amoxicillin-clavulanate (AUGMENTIN) 875-125 mg per tablet; Take 1 tablet by mouth 2 (two) times aday for 10 days Body mass index is 28.32 kg/m??. BMI Plan: Nutrition/Activities/Behavioral Counseling. Education Provided. Follow up 1-3 months. Abraham Barba MD documented in this encounter Plan of Treatment Not on file documented as of this encounter Procedures Procedure Name Priority Date/Time Associated Diagnosis Comments POCT INFLUENZA A/B Routine 06/17/2018 7: 19 PM CDT Body aches POCT RAPID STREP Routine 06/17/2018 6:49 PM CDT Sore throat documented in this encounter Results * POCT influenza A/B (06/17/2018 7:19 PM CDT) Rapid Influenza A Ag Negative Negative, Invalid Rapid Influenza B Ag Negative Negative, Invalid Swab 06/17/2018 7:19 PM CDT us Abraham Barba MD POINT OF CARE TEST ORDERABLES Fi nal Result * POCT rapid strep A (06/17/2018 6:49 PM CDT) Rapid Strep A, POC Negative Swab 06/17/2018 6:49 PM CDT us Abraham Barba MD POINT OF CARE TEST ORDERABLES Fi nal Result documented in this encounter Visit Diagnoses Diagnosis Body aches- Primary Generalized pain Sore throat Acute pharyngitis documented in this encounter Discontinued Medications Medication Sig Discontinue Reason Start Date End Da te escitalopram (LEXAPRO) 10 mg tablet 10 mg daily 06/17/2018 documented as of this encounter Historical Medications * This list may reflect changes made after this encounter. escitalopram (LEXAPRO) 10 mg tablet 10 mg daily 06/17/2018 NUVARING 0.12-0.015 mg/24 hr vaginal ring I 1 RING VAG MONTHLY 0 03/31/2018 07/19/2018 SUMAtriptan (IMITREX) 100 mg tablet 100 mg 09/11/2017 11/14/2020 added in this encounter Care Teams Project Administrator Relationship Specialty Start Date End Date Radha Love MD PCP - General Internal Medicine 06/17/18 documented as of this encounter
--- OUTSIDE RECORDS SUMMARY | 2024-03-04 06:28 | XMS_ITS | Encounter Summary ---
Author Organization 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
--- OUTSIDE RECORDS SUMMARY | 2024-03-04 06:28 | XMS_ITS | Encounter Summary ---
Author Organization [facility] Address [address] [place] [address] Care Team Providers Care Clinic Coordinator Name Role Phone Radha Love MD Primary Care Provider Encounter Details Date Type Department Care Team (Late st Contact Info) Description 05/04/2020 Telephone [facility] Primary Care [address] [place] [phone] Radha Love MD [address] [place] [address] Social History Tobacco Use Types Packs/Day Years [...] on file 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 * Telephone Encounter - Radha Love MD - 05/05/2020 4:34 PM CST Ok for cbc, cmp, lipid, a1c O STATION ENGINEER * Telephone Encounter - Sabrina Lee LPN - 05/04/2020 4:24 PM CST Received call from patient, requesting labs to be completed due to family history of DM, denies symptoms, wants completed before appointment on 06/13/2020. O STATION ENGINEER documented in this encounter Plan of Treatment Scheduled Orders Name Type Priority Associated Diagnoses Orde r Schedule CBC with auto differential Lab Routine Periodic health assessment, general screening, adult Expected: 05/08/2020, Expires: 05/08/2021 Comprehensive metabolic panel Lab Routine Periodic health assessment, general screening, adult Expected: 05/08/2020, Expires: 05/08/2021 Lipid panel Lab Routine Periodic health assessment, general screening, adult Expected: 05/08/2020, Expires: 05/08/2021 Hemoglobin A1c Lab Routine Periodic health assessment, general screening, adult Expected: 05/08/2020, Expires: 05/08/2021 documented as of this encounter Visit Diagnoses Diagnosis Periodic health assessment, general screening, adult- Primary documented in this encounter Care Teams Clinic Coordinator Relationship Specialty Start Date End Date Radha Love MD PCP - General Internal Medicine 06/17/18 documented as of this encounter
--- OUTSIDE RECORDS SUMMARY | 2024-03-04 06:28 | XMS_ITS | Encounter Summary ---
Author Organization 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
--- OUTSIDE RECORDS SUMMARY | 2024-03-04 06:28 | XMS_ITS | Referral Summary ---
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 [id number] [place] [phone] [facility] CHOICE PLUS [facility] PL[facility]/PPO Address: [address] [place] [address] Care Teams Retail Merchandising Coordinator Relationship Specialty Start Date End Date Radha Love MD PCP - General Internal Medicine 06/17/18
--- OUTSIDE RECORDS SUMMARY | 2024-03-04 06:28 | XMS_ITS | Encounter Summary ---
Author Organization [facility] Address [address] [place] [address] Care Team Providers Care African Studies Professor Name Role Phone Radha Love MD Primary Care Provider Encounter Details Date Type Department Care Team (Late st Contact Info) Description 11/14/2020 Orders Only [facility] Primary Care [address] [place] [address] Maida Solitario NP [address] [place] [address] Social History Tobacco Use Types Packs/Day [...] on file 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 Gender Identity Female 11/05/2020 10:44 PM CDT Sexual Orientation Straight 11/05/2020 10 :44 PM CDT documented as of this encounter Plan of Treatment Not on file documented as of this encounter Procedures Procedure Name Priority Date/Time Associated Diagnosis Comments THINPREP PAP, HPV REFLEX Routine 11/14/2020 10:24 AM CDT documented in this encounter Results * ThinPrep Pap, HPV Reflex (11/14/2020 10:24 AM CDT) Pap test 11/14/2020 10:2 4 AM CDT 11/15/2020 10:24 AM CDT Narrative 11/17/2020 12:55 PM CDT [facility] Department of Pathology [address] [place], [place] [id number] Final Report Note to Patients: This report may contain a detailed description of human tissue sent by a health care provider to the laboratory for pathologic evaluation. The content of this report is essential for diagnosis and may provide important critical findings. This information may be unfamiliar to patients to review without a medical professional present. It is advised that the patient review this report in the presence of a health care provider who can answer questions and explain the details. Patient Name: ??AISHWARYA PHILLIPS Address: ??[address] [place] [address], ?? [place], [place] ??[address] Gender: ??F : ??1995 (Age: 25) Service: ??Laboratory Location: ?? Hospital #: ??[id number] Patient Type: ??[facility] SPECIMEN Taken: ??11/14/2020 Received: ??11/15/2020 Accessioned:: ??11/16/2020 Reported: ??11/17/2020 Physician(s): Maida Solitario [facility] Diagnosis: Source of Specimen: ? SCREENING THIN PREP IMAGED PAP w/ Reflex HPV Specimen Adequacy: ?- Satisfactory for evaluation; endocervical/transformation zone component present General Category: ?- Negative for intraepithelial lesion or malignancy ?? DANIELE Li(ASCP) Report Electronically Reviewed and Signed Out By ??DANIELE Li(ASCP) ??11/17/2020 12:55:24 ??Specimen(s) Received: A: SCREENING THIN PREP IMAGED PAP w/ Reflex HPV Clinical History: Last Menstrual Period: 11/08 Menstrual History: Clinical History: first Pap Regular Cycles The Pap test is a screening test used to aid in the detection of cervical cancer and its precursors. ??It should not be the sole means by which malignant and premalignant lesions are diagnosed. ??Both false negative and false positive results may occur. ?? It also has poor sensitivity for the detection of endometrial lesions and should not be used to evaluate suspected endometrial abnormalities. ??For these reasons it is most important to obtain Pap tests at regular intervals. The performance characteristics of some immunohistochemical stains, fluorescence in-situ hybridization tests and immunophenotyping by flow cytometry cited in this report (if any) were determined by the Surgical Pathology Department at [facility] as part of an ongoing billing and quality technician program and in compliance with federally mandated regulations drawn from the Clinical Laboratory Improvement Act of 1988 (CLIA '88). ??Some of these tests rely on the use of analyte specific reagents and are subject to specific labeling requirements by the US Food and Drug Administration. ??Such diagnostic tests may only be performed in a facility that is certified by the Department of Health and Human Services as a high complexity laboratory under CLIA '88. The FDA has determined that such clearance or approval is not necessary. ??This test is used for clinical purposes. ??It should not be regarded as investigational or for research. ??Nevertheless, federal rules concerning the medical use of analyte specific reagents require that the following disclaimer be attached to the report: This test was developed and its performance characteristics determined by the Surgical Pathology Department [facility]. ??It has not been cleared or approved by the U. S. Food and Drug Administration. Maida Solitario NP LAB CYTOLOGY ORDERABLES Final Result documented in this encounter Visit Diagnoses Not on filedocumented in this encounter Care Teams African Studies Professor Relationship Specialty Start Date End Date Radha Love MD PCP - General Internal Medicine 06/17/18 documented as of this encounter
--- OUTSIDE RECORDS SUMMARY | 2024-03-04 06:28 | XMS_ITS | Encounter Summary ---
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
--- OUTSIDE RECORDS SUMMARY | 2024-03-04 06:28 | XMS_ITS | Clinical Summary ---
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 Gender Identity Not on file Sexual Orientation Not on file Plan of Treatment Health Maintenance Due Date Last Done Comments Hepatitis C Virus (HCV) Screening 1995 TdaP Immunization 1995 Human Papillomavirus (HPV) Immunization (1 - 3-dose series) 01/22/2012 Hepatitis B Immunization (1 of 3 - 19+ 3-dose series) 01/22/2016 Pap Smear 2018 Influenza Immunization (#1) 2023 SARS-COV-2 Immunization ( season) 2023 Respiratory Syncytial Virus (RSV) Immunization (Adult) (1 - 1-dose 75+ series) 01/22/2072 Meningococcal Immunization (ACWY) Aged Out No longer eligible based on patient's age to complete this topic Pneumococcal Immunization Combined Aged Out No longer eligible based on patient's age to complete this topic Rotavirus Immunization Aged Out No lo nger eligible based on patient's age to complete this topic Insurance [employer] on file
== END 2024-02-26 08:27 | disposition home or self-care (01) ==
PROVIDERS: Emergency Provider Nurse Practitioner Family; Referring Provider Emergency Medicine
DX: J06.9 Acute upper respiratory infection, unspecified (principal)
CPT/HCPCS: 87081; 87880; 99213; G0463